=== PATIENT | male | born 1955 | race Two or more races ===

== ENCOUNTER 2022-02-10 13:13 | Outpatient (REF) | payer MEDICARE, MEDICAID, SELFPAY ==
--- NOTE | 2022-02-10 14:47 | MHC.AU.MED ---
Medical Clearance for Hearing Instrumentation Date: 02/10/22 Patient Name: Brain Dumont Date of : 1955 Referring Provider: Ania Singh MD We have seen your patient on 02/10/22 and have determined that they are a candidate for amplification (See accompanying report). Specifically, they would benefit from: Hearing aid use in both ears There is a statute that addresses Medical Evaluation Requirements prior to fitting a patient with a hearing aid. According to [place] statute 265 CMR:6.03(1), (a) General. Except as provided in 265 CMR 6.03(1)(b), a systems support officer shall not sell a hearing aid unless the prospective user has presented to the systems support officer a written statement signed by a licensed physician that states that the patient's hearing loss has been medically evaluated and the patient may be considered a candidate for a hearing aid. The medical evaluation must have taken place within the preceding six months. Please note: Due to the [place] Statute referenced above, we cannot accept a signature other than that of a licensed physician. ELECTRONICS DETAIL DRAFTSPERSON and PA signatures cannot be accepted. I am in agreement with the above recommendation. There is no medical contraindication for hearing instrumentation. Physician Signature Date Physician Name (Printed)
--- NOTE | 2022-02-10 14:49 | MHC.AU.HA1 ---
Hearing Aid Evaluation Date of Visit: 02/10/22 Special Education Coordinator Used: Turkmen- In Person Historical Information: Description of Hearing: Normal at 250 Hz, sloping to moderately-severe sensorineural hearing loss, and rising back to normal by 8000 Hz bilaterally- cookie bite configuration Summary: Patient was seen for audiological evaluation (see separate report for details). He has not previously worn hearing aids. Options were discussed. He is interested in trying the ITC style. Hearing Aid Prescription: Based on the individual?s shared listening needs, communication environments, dexterity, desire for connectivity, and personal preferences, the following prescription for amplification has been made: Right ear: Make, Model, Color: ReSound Custom ITC, Medium Brown Battery Size: Rechargeable Left ear: Make, Model, Color: ReSound Custom ITC, Medium Brown Battery Size: Rechargeable Action Taken/Action Needed: Earmold Impressions Taken Prior authorization to be requested Hearing Instrument Fitting to be scheduled when materials arrive Primary Diagnosis: H90.3 Bilateral Sensorineural Hearing Loss Signature: Provider: Cj Carr, DAVID-A
== END 2022-02-10 13:14 | disposition home or self-care (01) ==
LOC: HO.HAP 13:13
PROVIDERS: Visit Provider Otolaryngology
DX: Z46.1 Encounter for fitting and adjustment of hearing aid (principal); H90.3 Sensorineural hearing loss, bilateral
CPT/HCPCS: 92557; 92567; 92591; V5275

== ENCOUNTER 2022-12-16 13:00 | Outpatient (REF) | payer MEDICARE, MEDICAID, SELFPAY ==
--- NOTE | 2022-12-16 13:40 | MHC.AU.HA1 ---
Hearing Aid Evaluation Date of Visit: 12/16/22 Historical Information: Description of Hearing: Right Ear: Within normal sloping to moderate rising to mild sensorineural hearing loss; Left Ear: Within normal sloping to severe rising to mild sensorineural hearing loss Summary: Brain provided an updated hearing test and medical clearance from Dr. Jones. He is ready to pursue amplification to help ease some of his communication difficulties. Brain reported he often has difficulty understanding people and needs them to raise the volume of their voices. 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 He has particular difficulty hearing in these particular environments due to the background noise. Brain also mentioned bilateral tinnitus which he is hoping hearing aids will help minimize his perception of the ringing. Discussed styles of hearing aids. Although previous HAE note reports Brain is interested in ITC devices, he opted to trial a rechargeable RITE that is compatible with his Android cell phone in order to keep ear canal more open. Hearing Aid Prescription: Based on the individual?s shared listening needs, communication environments, dexterity, desire for connectivity, and personal preferences, the following prescription for amplification has been made: Right ear: Make, Model, Color: Phonak Audeo L70-R Color: Graphite Sierra Battery Size: Rechargeable Civil Engineer In Training/Slim Tube: 2M Type of Earmold/Dome/CShell/SlimTip: Medium vented dome Left ear: Left ear prescription to be same as Right Hearing Aid above: Make, Model, Color: Phonak Audeo L70-R Color: Graphite Sierra Battery Size: Rechargeable Civil Engineer In Training/Slim Tube: 2M Type of Earmold/Dome/CShell/SlimTip: Medium vented dome Accessories/Assistive Technology: Key Account Coordinator Plan of Care: Patient wishes to purchase hearing aids as prescribed Action Taken/Action Needed: Hearing Instrument Fitting to be scheduled when materials arrive Primary Diagnosis: H90.3 Bilateral Sensorineural Hearing Loss Signature: Provider: Cj Mooney, [facility]
== END 2022-12-16 13:01 | disposition home or self-care (01) ==
LOC: HO.HAP 13:00
PROVIDERS: Visit Provider Otolaryngology
DX: Z46.1 Encounter for fitting and adjustment of hearing aid (principal); H90.3 Sensorineural hearing loss, bilateral
CPT/HCPCS: 92591

== ENCOUNTER 2023-01-12 15:12 | Outpatient (REF) | payer MEDICARE, MEDICAID, SELFPAY ==
--- NOTE | 2023-01-13 08:07 | MHC.AU.HA2 ---
Hearing Instrument Fitting- Adult- Binaural Date of Visit: 01/12/23 Hearing Instruments Dispensed: Right Ear: Make, Model, Color, Serial Number: Parth Chirinoso L70-R Color: Graphite Sierra S#[id number] Water Filterer Repair Warranty: 03/15/2026 Water Filterer Loss and Damage Warranty: 03/15/2026 [facility] Service Plan: Battery Size: Rechargeable Community Pharmacist/Slim Tube: 2M Earmold/Dome/CShell/SlimTip: Medium vented dome Type of Wax Guard: cerushield Left Ear: Make, Model, Color, Serial Number: Parth Kwaneo L70-R Color: Graphite Sierra S#[id number] Water Filterer Repair Warranty: 03/15/2026 Water Filterer Loss and Damage Warranty: 03/15/2026 [facility] Service Plan: Battery Size: Rechargeable Community Pharmacist/Slim Tube: 2M Earmold/Dome/CShell/SlimTip: Medium vented dome Type of Wax Guard: cerushield Accessories/Assistive Technology: Phonak Technical Support Technician Ease S#[id number] Summary of Fitting: Brain visited for hearing aid dispensing. Reviewed insertion/removal, excellence manager use. Due to time constraints we were not able to review cleaning/maintenance, will do so at follow up appointment. Verified to NAL-NL2 real ear targets. VC is active. Will pair with phone at follow up. He is looking forward to [facility] them to [facility] this coming [facility]. Follow up in 2 wks before he travels to [place]. Recommendations: Recommendations: A hearing instrument follow-up was scheduled. Diagnosis Code(s): Primary Diagnosis: H90.3 Bilateral Sensorineural Hearing Loss Signature: Provider: Beckie Ballard, CCC-A
== END 2023-01-12 15:13 | disposition home or self-care (01) ==
LOC: HO.HAP 15:12
PROVIDERS: Visit Provider Family Medicine
DX: Z46.1 Encounter for fitting and adjustment of hearing aid (principal); H90.3 Sensorineural hearing loss, bilateral
CPT/HCPCS: V5011; V5020; V5160; V5261

== ENCOUNTER 2023-02-28 13:56 | Outpatient (REF) | payer MEDICARE, MEDICAID, SELFPAY ==
--- NOTE | 2023-02-28 15:26 | MHC.AU.HA3 ---
Hearing Instrument Follow-Up- Binaural Date of Visit: 02/28/23 Right Ear: Model Isaías, Color, Serial Number: Parth Reyes L70-R SN: [id number] Color: Graphite Sierra Automatic Quilling Machine Operator Repair Warranty: 03/15/2026 Automatic Quilling Machine Operator Loss and Damage Warranty: 03/15/2026 [facility] Service Plan: 01/13/2024 Battery Size: Rechargeable Commercial Baker Helper/Slim Tube: 2M Earmold/Dome/CShell/SlimTip:Medium vented dome with retention tail Type of Wax Guard: CeruShield Dispensed By: [facility] Date of Fittin01/12/2023 Left Ear: Model Isaías, Color, Serial Number: Parth Reyes L70-R SN: [id number] Color: Graphite Sierra Automatic Quilling Machine Operator Repair Warranty: 03/15/2026 Automatic Quilling Machine Operator Loss and Damage Warranty: 03/15/2026 [facility] Service Plan: 01/13/2024 Battery Size: Rechargeable Commercial Baker Helper/Slim Tube: 2M Earmold/Dome/CShell/SlimTip: Medium vented dome with retention tail Type of Wax Guard: CeruShield Dispensed By: [facility] Date of Fittin01/12/2023 Follow-Up Summary: Brain reported overall he is doing well with the hearing aids. He forgot them when he went on a 13-day trip to [place]; however, he otherwise has reportedly worn them multimedia educational specialist. Updated firmware and therefore unable to confirm wear time via data logging. Brain did not want any programming adjustments at this time. He reportedly hears well including at [facility]. Explained how to clean hearing aids including how to change domes and wax guards. Paired hearing aids to cellphone and myPhonak cain and instructed on cain. Discussed the need for periodic cleanings. Recommendations: Hearing instrument follow-up or maintenance as needed. Please contact our clinic with any questions or concerns. Diagnosis Code(s): Primary Diagnosis: H90.3 Bilateral Sensorineural Hearing Loss Signature: Provider: Cj Mooney, [facility]
== END 2023-02-28 13:57 | disposition home or self-care (01) ==
LOC: HO.HAP 13:56
PROVIDERS: Visit Provider Family Medicine
DX: Z13.89 Encounter for screening for other disorder (principal)

== ENCOUNTER 2023-04-06 09:01 | Outpatient (REF) | payer OTHER, SELFPAY ==
[2023-04-06 15:01] LABS: Prostate Specific Antigen 13.92 ng/mL (<0.05-4.0)
== END 2023-04-06 09:02 | disposition home or self-care (01) ==
LOC: HO.CHCLDS 09:01
PROVIDERS: Visit Provider Internal Medicine
DX: R97.20 Elevated prostate specific antigen [PSA] (principal); Z12.5 Encounter for screening for malignant neoplasm of prostate
CPT/HCPCS: 36415; 84153

== ENCOUNTER 2023-04-24 14:12 | Outpatient (AMB) | payer OTHER, SELFPAY ==
--- NOTE | 2023-04-24 14:22 | MHC.OFFVIS ---
Intake Intake Visit Reasons: Elevated PSA Intake Note: New Patient presents for initial visit for elevated psa Urology Medications: none Blood Thinner: aspirin Weeder Required: Yes Accompanied by: Self / Same As Patient Allergies No Known Allergies Allergy (Verified 04/24/23 14:58) HPI HPI Comments History of Present Illness Details Brain is a 68-year-old Swedish-speaking male patient of Dr. Ora Jarrett. He has a past medical history of hypertension and postural dizziness. He presents to the office today as a new patient for an elevated PSA. In discussion with the patient today reports having had a follow-up with PCP at which time his PSA was noted to be elevated 03/01 13.9. When asked he denies any known family history of prostate cancer. DUNCAN performed right side of the prostate was noted to be firm left side boggy. No masses or nodules palpated. Discussed at length potential causes of elevated PSA. Discussed obtaining redraw of PSA and retroperitoneal ultrasound for further assessment evaluation. When asked he does report noting ongoing intermittent issues with dysuria. He reports these symptoms have been present for quite some time however dysuria is not with every urination. He otherwise denies urinary nocturia, hematuria, dysuria, foul smelling urine, changes to urinary stream, flank pain, fever, and or chills. He does report utilizing an adult diaper due to episodes of urinary urgency with incontinence if not near a bathroom. He otherwise denies any other issues or concerns at this time. [facility] Medical History Elevated PSA Postural dizziness Hypertensive disorder Review of Systems Const Reports no additional complaints Eyes Reports no additional complaints ENT Reports no additional complaints Card Reports as per HPI Resp Reports no additional complaints GI Reports no additional complaints Reports as per HPI Musc Reports no additional complaints Neuro Reports as per HPI Psych Reports no additional complaints Endo Reports no additional complaints Julio/Lymph Reports no additional complaints Aller/Immun Reports no additional complaints Physical Exam Const General: cooperative, healthy appearing, comfortable, no acute distress, well developed, alert and awake Orientation/consciousness: patient oriented x3 Limitations: no limitations HEENT Head: Yes normal to inspection, Yes normocephalic and Yes atraumatic Ears: hearing grossly normal bilaterally Eyes General: appearance normal, both eyes and all related structures Neck Neck: Yes normal visual inspection and Yes trachea midline Chest Chest palpation & inspection: normal inspection of the chest Resp Effort & Inspection: normal respiratory effort and able to speak in complete sentences Cardio Rate: regular rate GI Inspection: Yes normal to inspection General: Yes no CVA tenderness Back/Spine/Pelvis Back: no CVA tenderness Skin General skin exam: no rashes or lesions noted Neuro General: patient oriented x3 Extrem General: Yes normal to inspection Psych Appearance: grossly normal and well kempt Mental Status: mental status grossly normal Speech and movement: Normal speech and movement present and Clear speech present Affect: normal affect Attitude: cooperative Thought process: Normal thought process present Thought content: Normal thought content present Insight: Fair insight present (Psych) Judgement: Fair judgement present (Psych) Results AMB Urinalysis, Automated UA Leukoctes 15 Melyssa/uL Last Edit by [employer] on 04/24/23 14:59 UA Nitrite Negative Last Edit by [employer] on 04/24/23 14:59 UA Urobilinogen 0.2 mg/dL Last Edit by [employer] on 04/24/23 14:59 UA Protein 15 mg/dL Last Edit by [employer] on 04/24/23 14:59 UA pH 6.0 Last Edit by [employer] on 04/24/23 14:59 UA Blood 80 Almas/uL Last Edit by [employer] on 04/24/23 14:59 UA Specific Kent 1.015 Last Edit by [employer] on 04/24/23 14:59 UA Ketone Negative Last Edit by [employer] on 04/24/23 14:59 UA Bilirubin 0 mg/dL Last Edit by [employer] on 04/24/23 14:59 UA Glucose 0 mg/dL Last Edit by [employer] on 04/24/23 14:59 Results Reviewed Results Reviewed: Laboratory Last Values Urine pH (Auto) 6.0 04/24/23 14:27 Specific Kent (Auto) 1.015 04/24/23 14:27 Urine Protein (Auto) 15 mg/dL 04/24/23 14:27 Glucose (UA)(Auto) 0 mg/dL 04/24/23 14:27 Urine Ketones (Auto) Negative 04/24/23 14:27 Urine Blood (Auto) 80 Almas/uL 04/24/23 14:27 Urine Nitrite (Auto) Negative 04/24/23 14:27 Urine Bilirubin (Auto) 0 mg/dL 04/24/23 14:27 Urine Urobilinogen (Auto) 0.2 mg/dL 04/24/23 14:27 Leukocyte Esterase (Auto) 15 Melyssa/uL 04/24/23 14:27 Assessment & Plan Assessment & Plan (1) Prostatitis: Code(s): N41.9 - Inflammatory disease of prostate, unspecified (2) Dysuria: Code(s): R30.0 - Dysuria (3) Abnormal digital rectal exam: Code(s): R68.89 - Other general symptoms and signs (4) Urinary incontinence, urge: Code(s): N39.41 - Urge incontinence (5) Elevated PSA: Code(s): R97.20 - Elevated prostate specific antigen [PSA] Plan In office urinalysis results reviewed with the patient today; as noted above. Discussed at length potential causes of elevated PSA. Start Bactrim as discussed and prescribed. Discussed redraw of PSA status post antibiotic therapy as prescribed. Will obtain retroperitoneal ultrasound for further assessment evaluation. Discussed possible near future prostate biopsy. Discussed at length importance of timed voiding to decreased episodes of stress incontinence Follow-up in 2-3 months with labs and imaging to be completed prior; or sooner with any issues, concerns, and or questions. Orders: Orders US retroperitoneal comp Today N39.41 - Urge incontinence, N41.9 - Inflammatory disease of prostate, unspecified AMB Urinalysis Automated Today Z13.9 - Encounter for screening, unspecified PSA,Total (Free>4and<10) 6 Weeks R68.89 - Other general symptoms and signs, R97.20 - Elevated prostate specific antigen [PSA] Urine Culture Today R30.0 - Dysuria Medications: New sulfamethoxazole-trimethoprim 800-160 mg (Bactrim DS) 1 tab PO BID 14 days 28 tabs 0RF N41.9 - Inflammatory disease of prostate, unspecified Patient Instructions: The patient had an opportunity to ask questions regarding the treatment plan. All questions were answered. Physical exam, labs, and imaging were discussed and reviewed in detail. As well as risks, benefits, and discussion of treatment choices. No major barriers to understanding were identified. The patient expressed understanding and agreement with the above treatment plan. The patient was made aware they should contact our office by phone for worsening of their current condition, the appearance of new symptoms, or with any questions or concerns. Compliance is encouraged with any medications and follow up testing that is ordered. It is a privilege to be allowed the opportunity to participate in? your urological care.? Again, if you have any questions or concerns If you have any questions or concerns please do not hesitate to contact me. The office is [phone]. This note is constructed using voice recognition software. While every effort has been made to ensure accuracy contract driver errors may have been included. Yours sincerely, TAHIRA Riley Coding Level of Care Code New Pt Level 4 (62109) Diagnoses Prostatitis N41.9 Dysuria R30.0 Abnormal digital rectal exam R68.89 Urinary incontinence, urge N39.41 Elevated PSA R97.20
== END 2023-04-24 15:07 | disposition home or self-care (01) ==
PROVIDERS: PCP Internal Medicine; Visit Provider Nurse Practitioner Family
DX: N41.9 Inflammatory disease of prostate, unspecified (principal); R30.0 Dysuria; R68.89 Other general symptoms and signs; N39.41 Urge incontinence; R97.20 Elevated prostate specific antigen [PSA]; Z13.9 Encounter for screening, unspecified
CPT/HCPCS: 99204

== ENCOUNTER 2023-04-24 14:12 | Outpatient (REF) | payer OTHER, SELFPAY | END 2023-04-24 14:13 | disposition home or self-care (01) | LOC: HO.LNP 14:12 | PROVIDERS: PCP Internal Medicine; Visit Provider Nurse Practitioner Family | DX: R30.0 Dysuria (principal); R97.20 Elevated prostate specific antigen [PSA]; N41.9 Inflammatory disease of prostate, unspecified; R68.89 Other general symptoms and signs; N39.41 Urge incontinence | CPT/HCPCS: 81003; 87086; 99202 ==

== ENCOUNTER 2023-06-23 13:40 | Outpatient (REF) | payer OTHER, SELFPAY ==
--- NOTE | ~2023-06-23 | US_ITS ---
EXAMINATION: US RETROPERITONEAL COMPLETE (RENAL) CLINICAL INFORMATION: Urge incontinence. COMPARISON: None available. TECHNIQUE: Real-time imaging of the kidneys and bladder. Technically limited study secondary to body habitus. FINDINGS: RIGHT KIDNEY: 11.9 x 5.4 x 4.6 cm (SAG x AP x TRV). The kidney is normal in size, contour, and echogenicity. Renal cortical thickness is normal. No renal calculi or hydronephrosis. 1.5 cm simple parapelvic cyst in the lower pole. No follow-up imaging is recommended. LEFT KIDNEY: 11.3 x 6.0 x 5.3 cm (SAG x AP x TRV). The kidney is normal in size, contour, and echogenicity. Renal cortical thickness is normal. No calculi or focal parenchymal lesions. No hydronephrosis. BLADDER: Trabeculated urinary bladder with multiple small diverticuli. The bladder base is deformed by the enlarged prostate. Prevoid volume 440 mL. Post void volume 250 mL. ADDITIONAL FINDINGS: Enlarged prostate with a prominent median lobe; 164 mL. US/US retroperitoneal comp IMPRESSION: Enlarged prostate. Thick-walled bladder with numerous diverticuli consistent with sequela of chronic bladder outlet obstruction. No hydronephrosis. Post void bladder residual of 250 mL.
== END 2023-06-23 13:41 | disposition home or self-care (01) ==
LOC: HO.US 13:40
PROVIDERS: PCP Internal Medicine; Visit Provider Nurse Practitioner Family
DX: N39.41 Urge incontinence (principal); N41.9 Inflammatory disease of prostate, unspecified
CPT/HCPCS: 76770

== ENCOUNTER 2023-08-17 08:51 | Outpatient (REF) | payer OTHER, SELFPAY ==
[2023-08-17 14:46] LABS: MANUAL DIFF FLAG NO
[2023-08-17 14:55] LABS: Basophils Percent Auto 0.3 % (0-2); Eosinophils Absolute Auto 0.2 X10*3/uL (0.0-0.4); Eosinophils Percent Auto 3.3 % (0-4); Hematocrit 39.8 % (42.0-52.0); Hemoglobin 12.9 g/dl (14.0-18.0); Imm Gran Abs Auto 0.02 X10*3/uL (0.00-0.03); Imm Gran Pct Auto 0.3 % (0.0-0.4); Lymphocytes Absolute Auto 2.4 X10*3/uL (1.2-4.9); Lymphocytes Percent Auto 34.9 % (20-40); Mean Corpuscular HGB Conc 32.4 g/dl (31.0-36.0); Mean Corpuscular Hemoglobin 29.5 pg (27.0-33.0); Mean Corpuscular Volume 90.9 fL (80.0-98.0); Mean Platelet Volume 11.2 fL (9.4-12.4); Monocytes Absolute Auto 0.4 X10*3/uL (0.1-1.2); Monocytes Percent Auto 6.5 % (2-11); Neutrophils Absolute Auto 3.7 x10*3/uL (2.0-8.3); Neutrophils Percent Auto 54.7 % (45-73); Platelet Count 242 X10*3/uL (160-400); Red Blood Count 4.38 X10*6/uL (4.60-5.80); Red Cell Distribution Width 12.7 % (11.0-16.0); White Blood Count 6.7 X10*3/uL (4.8-10.8)
[2023-08-17 15:10] LABS: Alanine Aminotransferase 15 U/L (0-40); Alkaline Phosphatase 97 U/L (39-117); Anion Gap 11 (12-20); Aspartate Amino Transferase 17 U/L (5-37); Bilirubin Total 0.7 mg/dL (0.0-1.0); Blood Urea Nitrogen 10 mg/dL (9-16); Calcium 8.8 mg/dL (8.4-10.2); Carbon Dioxide 27 mmol/L (22-29); Chloride 108 mmol/L (96-108); Cholesterol 160 mg/dL (<200); Estimated Glomerular Filt Rate > 60; Glucose Random 98 mg/dL (60-115); HDL Cholesterol 50 mg/dL (>40); LDL Cholesterol Calculated 92 mg/dL (<100); Potassium 3.5 mmol/L (3.3-5.1); Sodium 142 mmol/L (135-145); Total Protein 7.3 g/dL (6.5-8.0); Triglycerides 90 mg/dL (<150)
== END 2023-08-17 08:52 | disposition home or self-care (01) ==
LOC: HO.CHCLDS 08:51
PROVIDERS: Visit Provider Internal Medicine
DX: E78.2 Mixed hyperlipidemia (principal)
CPT/HCPCS: 36415; 80053; 80061; 85025

== ENCOUNTER 2023-09-12 09:42 | Outpatient (REF) | payer OTHER, SELFPAY | END 2023-09-12 09:43 | disposition home or self-care (01) | LOC: HO.CHCLDS 09:42 | PROVIDERS: Visit Provider Nurse Practitioner Family | DX: R68.89 Other general symptoms and signs (principal); R97.20 Elevated prostate specific antigen [PSA]; Z12.5 Encounter for screening for malignant neoplasm of prostate | CPT/HCPCS: 36415; 84153 ==

== ENCOUNTER 2023-11-07 11:10 | Outpatient (AMB) | payer OTHER, SELFPAY ==
--- NOTE | 2023-11-07 11:37 | A.OFFVIS_ITS ---
Intake Visit Reasons: lab results(set) Intake Note: Patient presents today for follow up visit on: elevated psa PSA: 14.50 Urology Medications: none Blood Thinner: aspirin Boom Stick Worker Required: Yes Boom Stick Worker Services: Boom Stick Worker Present Boom Stick Worker Name: GLORIA LOMBARDIIker MEAD Accompanied by: Self / Same As Patient Allergies No Known Allergies Allergy (Verified 11/07/23 12:08) Medication List - Last Reconciled 11/07/23 by POPEYE Riley- amlodipine 10 mg PO DAILY aspirin 81 mg PO DAILY atorvastatin 20 mg PO BEDTIME lisinopril 20 mg PO DAILY meclizine mg PO DAILY metoprolol tartrate 25 mg PO BID HPI Comments Details: Brain is a 68-year-old Khmer-speaking male patient of Dr. Ora Jarrett. He has a past medical history of hypertension and postural dizziness. He presents to the office today for follow-up. Of note, patient was seen approximately 7 months ago for an elevated PSA at which time in office DUNCAN was performed and patient was noted to have left side of his prostate boggy and recommendations were made for initiation of Bactrim for potential prostatitis. Recommendations were made for 2-3 month follow-up however patient reports he was unable to follow-up and rescheduled appointment to today. When asked he does report completing antibiotic therapy as prescribed. Recent PSA and retroperitoneal ultrasound results reviewed with the patient today. We discussed increase in PSA despite completion of antibiotic therapy. We discussed at length potential causes of elevated PSA as well as further treatment options and risks and benefits of these treatment options were discussed. PSA: 03/01 13.9, 09/29 14.5 Retroperitoneal ultrasound results reviewed with the patient today. Bilateral kidneys are normal in size, contour, and echogenicity. No hydronephrosis or renal calculi noted. Right 1.5 cm simple peripelvic cyst in the lower pole. No imaging follow-up per radiology report. The bladder is trabeculated with multiple small diverticula. The bladder base is deformed by the enlarged prostate. Pre void bladder volume is a proximally 440 mL. Postvoid bladder volume is approximately 250 mL. Enlarged prostate with a prominent median lobe measuring approximately 165 mL. Patient does report a previous history of a negative biopsy approximately 8-10 years ago. He currently denies any bothersome urinary issues or concerns. He denies denies urinary nocturia, hematuria, dysuria, foul smelling urine, changes to urinary stream, flank pain, fever, and or chills. We discussed at length potential causes of elevated PSA as well as further treatment options. Risks and benefits of these interventions were discussed. All questions were answered. He otherwise denies any other issues or concerns at this time. [facility] Medical History Elevated PSA Postural dizziness Hypertensive disorder Review of Systems Const Reports no additional complaints Eyes Reports no additional complaints ENT Reports no additional complaints Card Reports as per HPI Resp Reports no additional complaints GI Reports no additional complaints Reports as per HPI Musc Reports no additional complaints Neuro Reports as per HPI Psych Reports no additional complaints Endo Reports no additional complaints Julio/Lymph Reports no additional complaints Aller/Immun Reports no additional complaints Physical Exam Const General: cooperative, healthy appearing, comfortable, no acute distress, well developed, alert and awake Orientation/consciousness: patient oriented x3 Limitations: no limitations HEENT Head: Yes normal to inspection, Yes normocephalic and Yes atraumatic Ears: hearing grossly normal bilaterally Eyes General: appearance normal, both eyes and all related structures Neck Neck: Yes normal visual inspection and Yes trachea midline Chest Chest palpation & inspection: normal inspection of the chest Resp Effort & Inspection: normal respiratory effort and able to speak in complete sentences Cardio Rate: regular rate GI Inspection: Yes normal to inspection General: Yes no CVA tenderness Back/Spine/Pelvis Back: no CVA tenderness Skin General skin exam: no rashes or lesions noted Neuro General: patient oriented x3 Extrem General: Yes normal to inspection Psych Appearance: grossly normal and well kempt Mental Status: mental status grossly normal Speech and movement: Normal speech and movement present and Clear speech present Affect: normal affect Attitude: cooperative Thought process: Normal thought process present Thought content: Normal thought content present Insight: Fair insight present (Psych) Judgement: Fair judgement present (Psych) Results AMB Urinalysis, Automated UA Leukoctes 125 Melyssa/uL Last Edit by Lona Guardado on 11/07/23 11:50 UA Nitrite Last Edit by 4th aspectrhona Guardado on 11/07/23 11:50 UA Urobilinogen 0.2 mg/dL Last Edit by [email or web address] on 11/07/23 11:50 UA Protein 0 mg/dL Last Edit by Lona Guardado on 11/07/23 11:50 UA pH 6.0 Last Edit by Lona Guardado on 11/07/23 11:50 UA Blood 0 Almas/uL Last Edit by [email or web address] on 11/07/23 11:50 UA Specific Vilas 1.020 Last Edit by [email or web address] on 11/07/23 11:50 UA Ketone Negative Last Edit by [email or web address] on 11/07/23 11:50 UA Bilirubin 0 mg/dL Last Edit by [email or web address] on 11/07/23 11:50 UA Glucose 0 mg/dL Last Edit by [email or web address] on 11/07/23 11:50 Results Reviewed Results Reviewed: Laboratory Last Values Urine pH (Auto) 6.0 11/07/23 11:48 Specific Vilas (Auto) 1.020 11/07/23 11:48 Urine Protein (Auto) 0 mg/dL 11/07/23 11:48 Glucose (UA)(Auto) 0 mg/dL 11/07/23 11:48 Urine Ketones (Auto) Negative 11/07/23 11:48 Urine Blood (Auto) 0 Almas/uL 11/07/23 11:48 Urine Bilirubin (Auto) 0 mg/dL 11/07/23 11:48 Urine Urobilinogen (Auto) 0.2 mg/dL 11/07/23 11:48 Leukocyte Esterase (Auto) 125 Melyssa/uL 11/07/23 11:48 Date of Service: 06/23/23 EXAMINATION: US RETROPERITONEAL COMPLETE (RENAL) FINDINGS: RIGHT KIDNEY: 11.9 x 5.4 x 4.6 cm (SAG x AP x TRV). The kidney is normal in size, contour, and echogenicity. Renal cortical thickness is normal. No renal calculi or hydronephrosis. 1.5 cm simple parapelvic cyst in the lower pole. No follow-up imaging is recommended. LEFT KIDNEY: 11.3 x 6.0 x 5.3 cm (SAG x AP x TRV). The kidney is normal in size, contour, and echogenicity. Renal cortical thickness is normal. No calculi or focal parenchymal lesions. No hydronephrosis. BLADDER: Trabeculated urinary bladder with multiple small diverticuli. The bladder base is deformed by the enlarged prostate. Prevoid volume 440 mL. Post void volume 250 mL. ADDITIONAL FINDINGS: Enlarged prostate with a prominent median lobe; 164 mL. IMPRESSION: Enlarged prostate. Thick-walled bladder with numerous diverticuli consistent with sequela of chronic bladder outlet obstruction. No hydronephrosis. Post void bladder residual of 250 mL. Assessment & Plan Assessment & Plan (1) Elevated PSA: Code(s): R97.20 - Elevated prostate specific antigen [PSA] Category: Medical (2) Prostatitis: Code(s): N41.9 - Inflammatory disease of prostate, unspecified Category: Medical (3) Abnormal digital rectal exam: Code(s): R68.89 - Other general symptoms and signs Category: Medical Plan: Plan Risks and benefits regarding trans rectal ultrasound with prostate biopsy were discussed.? Options of continued surveillance, no treatment and biopsy were offered. The risks include but are not limited to, urinary tract infection, sepsis, difficulty urinating, bleeding into the rectum or bladder that requires intervention and transfusion,and failure to diagnose prostate cancer. The patient understands the options and the risks involved. They wish to proceed. Printed information was provided to ensure he remains off anticoagulation for the appropriate length of time. He may require cardiology or PCP clearance.? An antibiotic will be administered prior to, and following the procedure (4) Enlarged prostate: Code(s): N40.0 - Benign prostatic hyperplasia without lower urinary tract symptoms Category: Medical (5) Diverticula, bladder: Code(s): N32.3 - Diverticulum of bladder Category: Medical (6) Bladder wall thickening: Code(s): N32.89 - Other specified disorders of bladder Category: Medical Plan In office urinalysis results with the patient today; as noted above. We discussed at length potential causes of elevated PSA. We discussed importance of following up as recommended to avoid potential delay in treatment. We discussed further treatment options; and risks and benefits of these interventions were discussed. Recent PSA results reviewed with the patient today. Will schedule for prostate biopsy as discussed. Prescription provided for antibiotic therapy; we discussed importance of taking medication day before, day of, and day after prostate biopsy. Follow-up per doctor's orders; or sooner with any issues, concerns, and or questions. Orders: Orders AMB Urinalysis Automated Today Z13.9 - Encounter for screening, unspecified Patient Instructions: The patient had an opportunity to ask questions regarding the treatment plan. All questions were answered. Physical exam, labs, and imaging were discussed and reviewed in detail. As well as risks, benefits, and discussion of treatment choices. No major barriers to understanding were identified. The patient expressed understanding and agreement with the above treatment plan. The patient was made aware they should contact our office by phone for worsening of their current condition, the appearance of new symptoms, or with any questions or concerns. Compliance is encouraged with any medications and follow up testing that is ordered. It is a privilege to be allowed the opportunity to participate in? your urological care.? Again, if you have any questions or concerns If you have any questions or concerns please do not hesitate to contact me. The office is [phone]. This note is constructed using voice recognition software. While every effort has been made to ensure accuracy bias cutting machine operator errors may have been included. Yours sincerely, TAHIRA Riley Coding Level of Care Code Est Pt Level 4 (07703) Diagnoses Elevated PSA R97.20 Prostatitis N41.9 Abnormal digital rectal exam R68.89 Enlarged prostate N40.0 Diverticula, bladder N32.3 Bladder wall thickening N32.89
== END 2023-11-07 12:07 | disposition home or self-care (01) ==
PROVIDERS: PCP Internal Medicine; Visit Provider Nurse Practitioner Family
DX: R97.20 Elevated prostate specific antigen [PSA] (principal); N41.9 Inflammatory disease of prostate, unspecified; R68.89 Other general symptoms and signs; N40.0 Benign prostatic hyperplasia without lower urinary tract symptoms; N32.3 Diverticulum of bladder; N32.89 Other specified disorders of bladder; Z13.9 Encounter for screening, unspecified
CPT/HCPCS: 99214

== ENCOUNTER → 2023-11-07 11:10 | Outpatient (BNVA) | payer OTHER, SELFPAY | PROVIDERS: PCP Internal Medicine; Visit Provider Nurse Practitioner Family | DX: R97.20 Elevated prostate specific antigen [PSA] (principal); N41.9 Inflammatory disease of prostate, unspecified; R68.89 Other general symptoms and signs; N40.0 Benign prostatic hyperplasia without lower urinary tract symptoms; N32.3 Diverticulum of bladder; N32.89 Other specified disorders of bladder | CPT/HCPCS: 81003; 99212 ==

== ENCOUNTER 2023-11-16 07:56 | Outpatient (REF) | payer OTHER, SELFPAY ==
[2023-11-16] MEDS: Lidocaine HCl 1 % MPF 5 ML VIAL 10 ML SUBCUT (09:03)
[2023-11-16] MEDS: levoFLOXacin 250 MG TABLET PO (09:07)
--- NOTE | 2023-11-16 15:48 | W.PM.OPN ---
Operative Note Operative Note Date of Service: 11/16/23 Narrative: Preoperative diagnosis: Elevated PSA Postoperative diagnosis: Elevated PSA Procedure: 1. transrectal ultrasound measurement of prostate 2. transrectal ultrasound-guided pudendal nerve block 3. transrectal ultrasound-guided prostate biopsy 12 core Surgeon: Dr. Edgardo Muller Anesthetic: 10cc 1% lidocaine Indications for procedure: Elevated PSA 14.5 Counselling: Technical aspects, risks and benefits of proposed procedure were discussed in full. All questions have been answered, written consent has been obtained and patient agrees to proceed. Procedure: The patient was brought into the procedure area and placed in a left lateral decubitus position. Patient identity confirmed. Perioperative antibiotics confirmed. Safety pause time out performed. DUNCAN was performed to dilate rectal - extremely large prostate sphincter Iodine 10cc with 60 cc gel was placed per rectum to reduce infection risk using a catheter tip syringe. 8 Hz Jack rectal end-fire ultrasound probe was placed transrectally without difficulty. The prostate was visualized. Seminal vesicles were normal. Prostate margins were clearly demarcated. Bladder was seen superiorly. No cystic structures were noted No calcifications were noted at the surgical margin The prostate was otherwise heterogenous in nature The prostate was measured in 3 dimensions Prostatic Width: 7 cm Prostatic Height: 8 cm Urethral Length: 7 cm Total volume equals : 230 ml An ultrasound-guided pudendal nerve block was performed using a 22 gauge spinal needle in the sagittal plane. 4 cc of 1% lidocaine placed at the junction of each seminal vesicle and 2 cc placed at the apex of the prostate. A 12 core biopsy was performed with 6 cores each side using an 18 gauge prostate biopsy gun. Two cores each were taken at the prostate apex, mid and base on each side. Cores were spaced between lateral and medial aspects. Each core was examined as placed on specimen foam as part of director quality assurance to ensure a minimum 1 cm of length and minimal discontinuity. He tolerated the procedure well with minimal rectal bleeding. Blood pressure remained stable following procedure. He was able to ambulate to bathroom after 5 minutes. Printed instructions regarding antibiotic use and common adverse events from the procedure such as low-grade temperature, potential infection and bleeding were given. He understands to call the office or go to an emergency room should any of these events arise. Pathology: 12 core prostate biopsy. CPT code 97817: Transrectal ultrasound; this is a diagnostic test for evaluation of the prostate and surrounding structures, looking for abnormalities or suspicious areas worrisome for cancer CPT code 51060: Biopsy, prostate; needle or punch, single or multiple, any approach CPT code 57035: Ultrasonic guidance for needle placement (eg, biopsy, aspiration, injection, localization device), imaging supervision and interpretation
== END 2023-11-16 07:57 | disposition home or self-care (01) ==
LOC: HO.US 07:56
PROVIDERS: PCP Internal Medicine; Visit Provider Urology
DX: R97.20 Elevated prostate specific antigen [PSA] (principal)
CPT/HCPCS: 55700; 76942; 88305; J2003

== ENCOUNTER → 2023-11-16 07:56 | Outpatient (BNV) | payer OTHER, SELFPAY | PROVIDERS: PCP Internal Medicine; Visit Provider Urology | DX: R97.20 Elevated prostate specific antigen [PSA] (principal) | CPT/HCPCS: 55700; 76872; 76942 ==

== ENCOUNTER 2023-12-07 12:47 | Outpatient (AMB) | payer OTHER, SELFPAY ==
--- NOTE | 2023-12-07 13:06 | A.OFFVIS_ITS ---
Intake Visit Reasons: Prostate biopsy results Intake Note: Patient is present for Telephone Biopsy results Urology Med: None Antibiotic Allergy: None Blood Thinner: Aspirin Vp Business Development Required: Yes Vp Business Development Language: Qatari Information Interpreted: clinical only Accompanied by: Self / Same As Patient Allergies No Known Allergies Allergy (Verified 12/07/23 13:07) HPI Comments Details: Lina is a pleasant Qatari-speaking male. He is a patient of Dr. Payan. He seen for the following urologic conditions - prostatitis Telemedicine Evaluation 15 min Consultation [employer] [place] [employer] Tolerated biopsy Biopsy results - chronic inflammation consistent with prior prostatitis Add finasteride given size of prostate Follow-up 6 months with PSA Would encourage prostate procedure if experiencing symptoms Elevated PSA with prostatitis PSA 09/29 14.5 Prior prostate imaging 165 g At time of biopsy 230 g High postvoid bladder volume PFSH Medical History Elevated PSA Postural dizziness Hypertensive disorder Review of Systems Const All systems reviewed & are unremarkable except as noted in HPI and below Reports no additional complaints Resp Reports no additional complaints GI Reports no additional complaints Reports as per HPI Musc Reports no additional complaints Physical Exam Telemedicine evaluation Appropriate responses Regular breathing rate and rhythm HEENT Head: Yes normal to inspection Ears: hearing grossly normal bilaterally Eyes General: appearance normal, both eyes and all related structures Neck Neck: Yes normal visual inspection Chest Chest palpation & inspection: normal inspection of the chest Resp Effort & Inspection: normal respiratory effort and able to speak in complete sentences Telehealth Telehealth Location of provider rendering services: practice address Location of patient: address on file Patient Identification confirmed using: Name, : Yes Telehealth method: voice only Patient verbally consented to treatment: Yes Patient verbally consented to billing insurance company: Yes Patient informed of any privacy concerns related to visit: Yes Assessment & Plan Assessment & Plan (1) Prostatitis: Code(s): N41.9 - Inflammatory disease of prostate, unspecified Category: Medical (2) Elevated PSA: Code(s): R97.20 - Elevated prostate specific antigen [PSA] Category: Medical (3) Enlarged prostate: Code(s): N40.0 - Benign prostatic hyperplasia without lower urinary tract symptoms Category: Medical Plan Finasteride Six-month follow-up PSA nurse-practitioner Orders: Orders PSA,Total (Free>4and<10) 6 Months R97.20 - Elevated prostate specific antigen [PSA] Medications: New finasteride 5 mg PO DAILY 90 days 90 tabs 1RF N13.8 - Other obstructive and reflux uropathy, N40.1 - Benign prostatic hyperplasia with lower urinary tract symptoms, R33.9 - Retention of urine, unspecified, R97.20 - Elevated prostate specific antigen [PSA] Patient Instructions: Imaging studies, laboratory and physical exam results were discussed and reviewed in detail. No major barriers to patient understanding were identified. An opportunity to ask questions regarding the treatment plan was provided. All questions were answered. The patient expressed understanding and agreement with the above treatment plan. The patient is aware they should contact our office by phone for worsening of their current condition or the appearance of new urologic symptoms. Compliance is encouraged with any medications and followup testing that is ordered. It is a privilege to participate in the urologic care of your patient. If you have any questions or concerns regarding treatment for the above conditions, or other urologic issues, please do not hesitate to contact me. The office telephone contact is [phone]. This note is constructed using voice recognition software. While every effort has been made to ensure accuracy manager grocery errors may have been included. Yours sincerely, Dr Edgardo Muller MD, [facility] - Urology Providers of Expert, Compassionate Care for the Genitourinary System Coding Level of Care Code Tele Est Pt Level 4 (62848) Diagnoses Prostatitis N41.9 Elevated PSA R97.20 Enlarged prostate N40.0
== END 2023-12-07 13:26 | disposition home or self-care (01) ==
LOC: HO.HUSH 12:47
PROVIDERS: PCP Internal Medicine; Visit Provider Urology
DX: N41.9 Inflammatory disease of prostate, unspecified (principal); R97.20 Elevated prostate specific antigen [PSA]; N40.0 Benign prostatic hyperplasia without lower urinary tract symptoms
CPT/HCPCS: 99442

== ENCOUNTER → 2023-12-07 12:47 | Outpatient (BNVA) | payer OTHER, SELFPAY | PROVIDERS: PCP Internal Medicine; Visit Provider Urology ==

== ENCOUNTER 2024-01-23 12:59 | Outpatient (AMB) | payer OTHER, SELFPAY ==
--- NOTE | 2024-01-23 13:00 | A.OFFVIS_ITS ---
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 Patient states he has veins that are big and swollen. 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 We utilized Hanna as an internal audit director. Complaints include pain/discomfort over varicosities, slight swelling of lower extremities, itchiness, and warmth of the lower extremities. It has been affecting their daily activities including walking and standing. It is noted more so in right leg. He does not smoke and is not a diabetic. Patient denies any previous venous surgery or injections. Patient denies any history of DVT/ PE. Patient denies any history of phlebitis. Trial of compression includes - elevation with a little relief They now present for vascular evaluation regarding their varicose veins. [facility] Medical History Elevated PSA Postural dizziness Hypertensive disorder Review of Systems Const Reports as per HPI and Denies weakness ENT Reports Normal hearing present and Denies dizziness Card Reports as per HPI, Denies chest pain, Denies chest pain at rest, Denies chest pain with activity, Denies dyspnea and Denies dyspnea on exertion Resp Reports as per HPI, Denies cough, Denies dyspnea and Denies dyspnea on exertion GI Reports as per HPI, Denies abdominal pain, Denies nausea and Denies vomiting Musc Denies numbness Skin/Breast Reports as per HPI, Denies erythema and Denies wounds Neuro Reports Normal hearing present, Denies dizziness, Denies numbness, Denies Sensory deficit (Neuro) and Denies weakness Psych Reports no additional complaints Endo Reports no additional complaints Physical Exam Const General: healthy appearing and no acute distress Orientation/consciousness: patient oriented x3 HEENT Head: Yes normal to inspection Ears: hearing grossly normal bilaterally Mouth: Normal oral and palatal mucosa present Resp Effort & Inspection: normal respiratory effort and able to speak in complete sentences Auscultation: clear to auscultation bilaterally Cardio Jugular venous distension: no JVD Rate: regular rate Rhythm: regular rhythm Heart sounds: S1 normal heart sound present and S2 normal heart sound present Bruits: no abdominal aortic bruits, no carotid bruits, no femoral bruits and no renal bruits Peripheral pulses: Peripheral pulses 2+ throughout GI Inspection: Yes normal to inspection Palpation (GI): No Abdominal aortic bruit present Skin General skin exam: no rashes or lesions noted Wounds: no wounds Hair: normal Neuro General: patient oriented x3 Cranial nerves: Yes Normal hearing present Cognition (Neuro): normal cognition Gait exam (Neuro): Normal gait present Motor exam (neuro): 5/5 motor strength present throughout Sensory Exam: No Sensory deficit (Neuro) Extrem Other: Right lower extremity: Small tortuosities noted around the medial and anterior aspect just [id number]. Palpable DP pulses. Slight discoloration noted a round the ankles. Left lower extremity: Small spider veins noted on the medial and anterior aspect of the knee. Slight discoloration noted around the ankles. Palpable DP pulses. CEAP: C - 3/4 E - primary A - superficial P - reflux General: Yes normal to inspection, Yes full ROM, Yes capillary refill normal and Yes normal gait Assessment & Plan Assessment & Plan (1) Varicose veins of both lower extremities with inflammation: Code(s): I83.11 - Varicose veins of right lower extremity with inflammation; I83.12 - Varicose veins of left lower extremity with inflammation Category: Medical Plan: Brain is presenting today on a referral from his PCP for varicose veins that has been going on for over a year. He states his right leg is worse than his left. He has complaints of itchiness and feeling warmth as well as inflamed veins. He has been using some elevation with relief. In short, the patient has evidence of venous insufficiency. I have discussed the pathophysiology with the patient. In addition I have provided informational material regarding venous disease to the patient. We have discussed conservative measures including compression, elevation, and exercise. I have also provided a handout regarding appropriate use of compression stockings and where to purchase good compression stockings as well. We are able to provide him with a set of [place] compression socks. He was very thankful for this. I have taken the liberty of ordering venous insufficiency testing with the patient. They will follow up with me after testing. The patient had an opportunity to ask questions regarding the treatment plan. All questions were answered. Imaging studies, laboratory studies and physical exam results were discussed and reviewed in detail. No major barriers to understanding were identified. The patient expressed understanding and agreement with the above treatment plan. The patient is aware they should contact our office by phone for worsening of the current condition or the appearance of new symptoms. Thank you for allowing me to participate in the vascular care of this patient. If you have any questions or concerns regarding the treatment for the above condition please do not hesitate to contact me. The office telephone contact is [phone]. This note is constructed using voice recognition software. While every effort has been made to ensure accuracy, segmental paving supervisor errors may have been included. Thank you for allowing me to participate in the care of your patient. Yours sincerely, HIRO Gonzalez Orders: Orders US venous duplex LE BI 1 Week I83.11 - Varicose veins of right lower extremity with inflammation, I83.12 - Varicose veins of left lower extremity with inflammation Coding Level of Care Code New Pt Level 4 (39753) Diagnoses Varicose veins of both lower extremities with inflammation I83.11; I83.12
--- OUTSIDE RECORDS SUMMARY | 2024-01-23 13:02 | XMS_ITS | Patient Health Record ---
Author Organization [facility] Address [address], [place] [id number] Support Name Relationship Address Phone NINA POWELL Guarantor Unknown [phone] Reason For Referral No Information Medications Medication SIG (Take, Route, Frequency, Duration) Notes Start Date End Date Status atorvastatin Active lisinopril Active loratadine Active amLODIPine Active Aspir 81 Active Plan Of Treatment No Information Insurance Providers Payer Name Payer Address Payer Phone Subscriber Number Group Number Insured Name Patient Relationship to Insured Coverage Start Date Coverage End Date [facility] [address] [place] [phone] [id number] NINA POWELL Self - patient is the insured Medical (General) History Medical History History ICD Code hypertension high cholesterol
== END 2024-01-23 13:30 | disposition home or self-care (01) ==
PROVIDERS: PCP Internal Medicine; Visit Provider Physician Assistant Surgical
DX: I83.11 Varicose veins of right lower extremity with inflammation (principal); I83.12 Varicose veins of left lower extremity with inflammation
CPT/HCPCS: 99204

== ENCOUNTER → 2024-01-23 12:59 | Outpatient (BNVA) | payer OTHER, SELFPAY | PROVIDERS: PCP Internal Medicine; Visit Provider Physician Assistant Surgical | DX: I83.11 Varicose veins of right lower extremity with inflammation (principal); I83.12 Varicose veins of left lower extremity with inflammation | CPT/HCPCS: 99202 ==

== ENCOUNTER → 2024-03-06 13:09 | Outpatient (BNV) | payer OTHER, SELFPAY | PROVIDERS: PCP Internal Medicine; Visit Provider Radiology Diagnostic Radiology | DX: I82.412 Acute embolism and thrombosis of left femoral vein (principal); I83.11 Varicose veins of right lower extremity with inflammation | CPT/HCPCS: 93970 ==

== ENCOUNTER 2024-03-28 13:06 | Outpatient (AMB) | payer OTHER, SELFPAY ==
--- NOTE | 2024-03-28 13:07 | A.OFFVIS_ITS ---
Intake Visit Reasons: follow up s/p 03/06/24 Intake Note: Patient presents for follow up US. States he has pain in his right leg. Accompanied by: Self / Same As Patient Allergies No Known Allergies Allergy (Verified 03/28/24 13:15) [facility] follow up s/p 03/06/24: Details: Very pleasant 68-year-old gentleman presents for follow-up regarding venous insufficiency. Has had continued swelling and discomfort. This is right more so than left. He reports it is a continued source of pain and discomfort. He has used compression with minimal relief. He now presents for follow-up with venous insufficiency testing. [facility] Medical History Elevated PSA Postural dizziness Hypertensive disorder Review of Systems Const Reports as per HPI ENT Reports no additional complaints Card Denies chest pain, Denies chest pain at rest and Denies chest pain with activity Resp Denies chest congestion and Denies cough GI Reports no additional complaints Musc Details: pain over varicosities, aching of lower extremities, swelling, cramping, heaviness and tiredness, itching Denies abnormal gait Skin/Breast Reports pruritus and Denies wounds Neuro Reports no additional complaints and Denies abnormal gait Psych Denies no additional complaints Physical Exam Const General: cooperative, healthy appearing and comfortable Orientation/consciousness: oriented to person, oriented to place and oriented to time Neck Carotids: no bruits Chest Chest palpation & inspection: normal inspection of the chest and normal palpation of entire chest wall Resp Effort & Inspection: normal respiratory effort and able to speak in complete sentences Cardio Rate: regular rate Heart sounds: S1 normal heart sound present and S2 normal heart sound present Peripheral pulses: Peripheral pulses 2+ throughout GI Inspection: Yes normal to inspection Skin Other: +2 edema, large rope-like varicosities greater than 4 mm CEAP Classification C4 - skin color changes Ep - Etiology Primary As - superficial veins P - reflux General skin exam: dry skin Neuro General: oriented to person, oriented to place and oriented to time Extrem Right lower extremity: full ROM, normal capillary refill and edema Left lower extremity: full ROM, normal capillary refill and edema Psych Mental Status: mental status grossly normal Results Reviewed Results Reviewed: Brief summary of venous insufficiency testing is as follows: right great saphenous vein: Positive right small saphenous vein: negative right accessory vein: none present left great saphenous vein: negative left small saphenous vein: negative left accessory vein: none present Please note there is no evidence of any venous aneurysms or significant tortuosity Assessment & Plan Assessment & Plan (1) Varicose veins of right lower extremity with inflammation: Code(s): I83.11 - Varicose veins of right lower extremity with inflammation Category: Medical Plan: This patient has varicose veins with inflammation. They continue to be a source of discomfort for the patient. The patient has tried conservative treatment with compression, leg elevation and exercise program for over 3 months time. They have been compliant with all treatment. This has provided minimal relief for the patient. I do not anticipate this course of treatment will alter the underlying etiology. The patient has been scheduled for lower extremity venous treatment inclusive of --- right great saphenous vein radiofrequency ablation. Risks, benefits, and complications of this procedure has been discussed in detail with the patient including but not limited to bleeding, infection, and the development of a DVT. The patient has demonstrated a clear understanding and has consented. We will schedule the patient as soon as possible. Thank you for allowing us to participate in this patient's care. If there are any questions or concerns please do not hesitate to contact us. Coding Level of Care Code Est Pt Level 4 (24447) Diagnoses Varicose veins of right lower extremity with inflammation I83.11
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
--- OUTSIDE RECORDS SUMMARY | 2024-03-28 14:01 | XMS_ITS | Encounter Summary ---
Author Organization [employer] Address [address] [facility] [address] [place] [address] Care Team Providers Care Railroad Car Letterer Name Role Phone Danny Morgan MD Primary Care Prov ider Reason for Visit * Reason Onset Date Comments Durable Medical Equipment 01/26/2024 Encounter Details Date Type Department Care Team (Late st Contact Info) Description 01/26/2024 Telephone [facility] MEDICINE [address] [place] [address] Danny Morgan MD [address] [place] [address] Durable Medical Equipment Social History Tobacco Use Types Packs/Day Years Used Date Smoking Tobacco: Never Smokeless Tobacco: Never Alcohol Use Standard Drinks/Week Comments Never 0 [...] Orientation Straight 12/06/2021 10 :20 AM EDT documented as of this encounter Miscellaneous Notes * Telephone Encounter - Shameka Velasquez LPN - 01/29/2024 9:20 AM EST Please review message below and advise. If agreed pt ll need documentation \ Tc from pt requesting to get a script for Compression Socks. Pt was told to get them by [facility]. IF any questions contact pt at [phone] * Telephone Encounter - Jaison Shelton - 01/26/2024 11:02 AM EST Tc from pt requesting to get a script for Compression Socks. Pt was told to get them by [facility]. IF any questions contact pt at [phone] documented in this encounter Plan of Treatment Upcoming Encounters Date Type Department Care Team (Late st Contact Info) Description 04/03/2024 9:30 AM EST Telemedicine [facility] MED & PEDS [address] [place] [address] Danny Morgan MD [address] [place] [address] documented as of this encounter Visit Diagnoses Not on filedocumented in this encounter Additional Health Concerns Assessment Noted Time PHQ-9 Depression Total Score: 4 09/09/19 10:31 AM EDT documented as of this encounter Care Teams Railroad Car Letterer Relationship Specialty Start Date End Date Danny Morgan, MD [address] [place] [phone] PCP - General Internal Medicine 06/17/19 documented as of this encounter
--- OUTSIDE RECORDS SUMMARY | 2024-03-28 14:01 | XMS_ITS | Encounter Summary ---
Author Organization [employer] Address [address] [facility] [address] [place] [address] Care Team Providers Care Elevator Dispatcher Name Role Phone Danny Morgan MD Primary Care Prov ider Encounter Details Date Type Department Care Team (Late st Contact Info) Description 03/06/2024 Orders Only [facility] External Provider, [facility] Social History Tobacco Use Types Packs/Day Years [...] AM EDT documented as of this encounter Plan of Treatment Upcoming Encounters Date Type Department Care Team (Late st Contact Info) Description 04/03/2024 9:30 AM EST Telemedicine [facility] CHC MED & PEDS [address] [place] [address] PayanDanny Orellana MD [address] [place] [address] documented as of this encounter Procedures Procedure Name Priority Date/Time Associated Diagnosis Comments [facility] LOWER EXTREMITY VENOUS INSUFFICIENCY BILATERAL Routine 03/06/2024 1:10 PM EST documented in this encounter Results * [facility] Lower Extremity Venous Insufficiency Bilateral (03/06/2024 1:10 PM EST) 03/06/2024 1:10 PM EST Narrative [facility] IMAGING - 03/07/2024 3:38 PM EST ? [facility] ?[address] ?[place] [address] ? Ultrasound Report ? Signed ? Patient: Dumont,Brain P ?MR#: [id number] ?? 159 ? : 1955 ?Acct:[id number] ? Age/Sex: 68 / M ?ADM Date: 03/06/24 ? Loc: HO.US ? Attending Dr: Shwetha BOSCH-C ? Ordering Physician: Shwetha Feng-C ?? Date of Service: 03/06/24 ?? Procedure(s): US venous insuf bilat ?? Accession Number(s): [id number] ? cc: Danny Morgan MD; Shwetha Feng [...] ?? Size: NA ?? Reflux: NA ? US/US venous insuf bilat ?? IMPRESSION: ?? Right: Venous insufficiency, great saphenous vein throughout the entire ?? extremity. ?? 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 ? Left: Venous insufficiency, left common femoral vein. ? Electronically signed by: ??Danny Vaughan MD ??03/07/2024 03:35 PM ?? EST RP ? Dictated By: ?Danny Andrew MD ? Signed By: ?<Electronically signed by Danny George MD in OV> ? 03/07/24 1535 ? DD/ 1310 ? TD/TT: 03/06/24 1345 ? Windows Systems Administrator: ? Procedure Note Donotuseinterpreter, Image - 03/07/2024 [place] [address] Ultrasound Report Signed Patient: Brain Dumont PMR#: [id number] 159 : 6Acct:[id number] Age/Sex: 68 / MADM Date: 03/06/24 Loc: . Attending Dr: Shwetha Feng PA-C Ordering Physician: Shwetha Feng PA-C Date of Service: 03/06/24 Procedure(s): US venous insuf bilat Accession Number(s): [id number] cc: Danny Morgan MD; Shwetha Feng PA-C [...] by: Danny Vaughan MD 03/07/2024 03:35 PM EST Dictated By: Danny Andrew MD Signed By: <Electronically signed by Danny George MDin OV> 03/07/24 1535 DD/ 1310 TD/TT: 03/06/24 1345 Windows Systems Administrator: [facility] External Provider CV VASC ULAR PROCEDURES Final Result [facility] [address] [place], [place] [phone] documented in this encounter Visit Diagnoses Not on filedocumented in this encounter Additional Health Concerns Assessment Noted Time PHQ-9 Depression Total Score: 4 09/09/19 23 10:31 AM EDT documented as of this encounter Care Teams Elevator Dispatcher Relationship Specialty Start Date End Date Danny Morgan MD [address] [place] [address] PCP - General Internal Medicine 06/17/19 documented as of this encounter
--- OUTSIDE RECORDS SUMMARY | 2024-03-28 14:01 | XMS_ITS | Encounter Summary ---
Author Organization [employer] Address 75 [facility] 7t [place] [address] Care Team Providers Care Manufacturing Engineer Chief Name Role Phone Danny Morgan MD Primary Care Prov ider Reason for Visit * Reason Comments Med Refill Encounter Details Date Type Department Care Team ([facility] st Contact Info) Description 01/17/2024 Refill [facility] CHC MED & PEDS [address] [place], [place] [phone] Danny Morgan MD [address] [place] [address] Social History Tobacco Use Types Packs/Day Years [...] Info) Description 04/03/2024 9:30 AM EST Telemedicine [facility] MED & PEDS [address] [place] [address] Danny Morgan MD [address] [place] [address] documented as of this encounter Visit Diagnoses Not on filedocumented in this encounter Additional Health Concerns Assessment Noted Time PHQ-9 Depression Total Score: 4 09/09/19 23 10:31 AM EDT documented as of this encounter Care Teams Manufacturing Engineer Chief Relationship Specialty Start Date End Date Danny Morgan MD [address] [place] [address] PCP - General Internal Medicine 06/17/19 documented as of this encounter
--- OUTSIDE RECORDS SUMMARY | 2024-03-28 14:01 | XMS_ITS | Encounter Summary ---
Author Organization [employer] Address 75 [facility] 7t [place] [address] Care Team Providers Care Cupola Worker Name Role Phone Danny Morgan MD Primary Care Prov ider Reason for Visit * Reason Comments Med Refill Encounter Details Date Type Department Care Team ([facility] st Contact Info) Description 09/26/2023 Refill [facility] CHC MED & PEDS [address] [place], [place] [phone] Milagro Mitchell MD [address] [place] [address] Social History Tobacco Use Types Packs/Day Years [...] Info) Description 04/03/2024 9:30 AM EST Telemedicine [facility] MED & PEDS [address] [place] [address] Danny Morgan MD [address] [place] [address] documented as of this encounter Visit Diagnoses Not on filedocumented in this encounter Additional Health Concerns Assessment Noted Time PHQ-9 Depression Total Score: 4 09/09/19 23 10:31 AM EDT documented as of this encounter Care Teams Cupola Worker Relationship Specialty Start Date End Date Danny Morgan MD [address] [place] [address] PCP - General Internal Medicine 06/17/19 documented as of this encounter
--- OUTSIDE RECORDS SUMMARY | 2024-03-28 14:01 | XMS_ITS | Encounter Summary ---
Author Organization [employer] Address [address] [facility] [address] 7[address] [place] [address] Care Team Providers Care Speech Coach Name Role Phone Danny Morgan MD Primary Care Prov ider Encounter Details Date Type Department Care Team ([facility] st Contact Info) Description 05/25/2023 Orders Only [facility] MEDICINE [address] [place] [address] Provider, MD Esther Social History Tobacco Use Types Packs/Day Years Used Date Smoking Tobacco: Never Smokeless Tobacco: Never Alcohol Use Standard Drinks/Week Comments Never 0 (1 standard drink = 0.6 oz pur e alcohol) Depression Answer Date Recorded Patient Health Questionnaire-9 Score 4 09/08/2022 Housing Stability Answer Date Recorded What is your housing situation today? I have wilsonraymon kebede 11/24/[address] you [...] Info) Description 04/03/2024 9:30 AM EST Telemedicine [facility] CHC MED & PEDS [address] [place] [address] PayanDanny Orellana MD [address] [place] [address] documented as of this encounter Procedures Procedure Name Priority Date/Time Associated Diagnosis Comments US RETROPERITONEAL COMPLETE Routine 06/23/2023 2:16 PM EDT COLONOSCOPY Routine 06/05/2014 8:11 AM EDT documented in this encounter Results * US Retroperitoneal Complete (06/23/2023 2:16 PM EDT) Anatomical Region Laterality Modality Ultrasound 06/23/2023 2:16 PM EDT Narrative 07/04/2023 3:34 PM EDT ? [facility] ?[address] ?[place] [address] ? Ultrasound Report ? Signed ? Patient: Brain Dumont P ?MR#: [id number] ?? 159 ? : 1955 ?Acct:[id number] ? Age/Sex: 68 / M ?ADM Date: 05/17/24 ? Loc: HO.US ? Attending Dr: Jayshree Porter INTERNATIONAL MARKETING COORDINATOR-BC ? Ordering Physician: Jayshree Porter INTERNATIONAL MARKETING COORDINATOR-BC ?? Date of Service: 06/23/23 ?? Procedure(s): US retroperitoneal comp ?? Accession Number(s): [id number] ? cc: Danny Morgan MD; Jayshree Porter [facility] ? EXAMINATION: ?? US RETROPERITONEAL COMPLETE (RENAL) ? CLINICAL INFORMATION: ?? Urge incontinence. ? COMPARISON: ?? None available. ? TECHNIQUE: ?? Real-time imaging of the kidneys and bladder. Technically limited study ?? secondary to body habitus. ? FINDINGS: ? RIGHT KIDNEY: 11.9 x 5.4 x 4.6 cm (SAG x AP x TRV). The kidney is ?? normal in size, contour, and echogenicity. Renal cortical thickness is ?? normal. No renal calculi or hydronephrosis. 1.5 cm simple parapelvic ?? cyst in the lower pole. No follow-up imaging is recommended. ? LEFT KIDNEY: 11.3 x 6.0 x 5.3 cm (SAG x AP x TRV). The kidney is normal ?? in size, contour, and echogenicity. Renal cortical thickness is normal. ?? No calculi or focal parenchymal lesions. No hydronephrosis. ? BLADDER: Trabeculated urinary bladder with multiple small diverticuli. ?? The bladder base is deformed by the enlarged prostate. Prevoid volume ?? 440 mL. Post void volume 250 mL. ? ADDITIONAL FINDINGS: Enlarged prostate with a prominent median lobe; ?? 164 mL. ? US/US retroperitoneal comp ?? IMPRESSION: ?? Enlarged prostate. Thick-walled bladder with numerous diverticuli ?? consistent with sequela of chronic bladder outlet obstruction. No ?? hydronephrosis. Post void bladder residual of 250 mL. ? Dictated By: ?Carlos Trevino MD ? Signed By: ?<Electronically signed by Carlos Trevino MD in OV> ?07/04/23 1530 ? DD/ 1416 ? TD/TT: ? Paper Cone Maker: JK ? Procedure Note Majo Mcwilliams - 07/04/[address] [address] Ultrasound Report Signed Patient: Brain Dumont PMR#: [id number] 159 : 6Acct:[id number] Age/Sex: 68 / MADM Date: 06/23/23 Loc: HO.US Attending Dr: Jayshree HOFFMANN Ordering Physician: Jayshree Porter Date of Service: 06/23/23 Procedure(s): US retroperitoneal comp Accession Number(s): [id number] cc: Danny Morgan MD; Jayshree Porter [facility]- EXAMINATION: US RETROPERITONEAL COMPLETE (RENAL) CLINICAL INFORMATION: Urge incontinence. COMPARISON: None available. TECHNIQUE: Real-time imaging of the kidneys and bladder. Technically limited study secondary to body habitus. FINDINGS: RIGHT KIDNEY: 11.9 x 5.4 x 4.6 cm (SAG x AP x TRV). The kidney is normal in size, contour, and echogenicity. Renal cortical thickness is normal. No renal calculi or hydronephrosis. 1.5 cm simple parapelvic cyst in the lower pole. No follow-up imaging is recommended. LEFT KIDNEY: 11.3 x 6.0 x 5.3 cm (SAG x AP x TRV). The kidney is normal in size, contour, and echogenicity. Renal cortical thickness is normal. No calculi or focal parenchymal lesions. No hydronephrosis. BLADDER: Trabeculated urinary bladder with multiple small diverticuli. The bladder base is deformed by the enlarged prostate. Prevoid volume 440 mL. Post void volume 250 mL. ADDITIONAL FINDINGS: Enlarged prostate with a prominent median lobe; 164 mL. US/US retroperitoneal comp IMPRESSION: Enlarged prostate. Thick-walled bladder with numerous diverticuli consistent with sequela of chronic bladder outlet obstruction. No hydronephrosis. Post void bladder residual of 250 mL. Dictated By: Carlos Trevino MD Signed By: <Electronically signed by Carlos Trevino MD in OV> 07/04/23 1530 DD/ 1416 TD/TT: Paper Cone Maker: TERRI [facility] External Provider IMG US PROCEDURES Final Result * Hm Colonoscopy (06/05/2014 8:11 AM EDT) Historical Provider HEALTH MAINTENANCE Final Result documented in this encounter Visit Diagnoses Not on filedocumented in this encounter Additional Health Concerns Assessment Noted Time PHQ-9 Depression Total Score: 4 09/09/19 23 10:31 AM EDT documented as of this encounter Care Teams Speech Coach Relationship Specialty Start Date End Date Danny Morgan MD [address] [place] [address] PCP - General Internal Medicine 06/17/19 documented as of this encounter
--- OUTSIDE RECORDS SUMMARY | 2024-03-28 14:01 | XMS_ITS | Encounter Summary ---
Author Organization [employer] Address 75 [facility] 7t [place] [address] Care Team Providers Care Airfield Engineer Officer Name Role Phone Danny Morgan MD Primary Care Prov ider Reason for Visit * Reason Onset Date Comments Nurse Triage 05/10/2023 Encounter Details Date Type Department Care Team (Late st Contact Info) Description 05/10/2023 Telephone [facility] MEDICINE [address] [place] [address] Danny Morgan MD [address] [place] [address] Nurse Triage Social History Tobacco Use Types Packs/Day Years [...] encounter Miscellaneous Notes * Telephone Encounter - Radha Myles RN - 05/10/2023 12:11 PM EDT Triage call with [place] Assistant Vice President attempted x2. Voice message left to call [facility] triage line at [phone] * Telephone Encounter - Naomi Dyer - 05/10/2023 11:48 AM EDT Symptom: Foot or Ankle Swelling Outcome: Schedule a same-day appointment or talk to a nurse or provider today Reason: Caller denied all higher acuity questions The caller accepted this outcome Equ[place]inean speaker documented in this encounter Plan of Treatment Upcoming Encounters Date Type Department Care Team (Late st Contact Info) Description 04/03/2024 9:30 AM EST Telemedicine [facility] CHC MED & PEDS [address] [place] [address] Danny Morgan MD [address] [place] [address] documented as of this encounter Visit Diagnoses Not on filedocumented in this encounter Additional Health Concerns Assessment Noted Time PHQ-9 Depression Total Score: 4 09/09/19 10:31 AM EDT documented as of this encounter Care Teams Airfield Engineer Officer Relationship Specialty Start Date End Date Danny Morgan MD [address] [place] [address] PCP - General Internal Medicine 06/17/19 documented as of this encounter
== END 2024-03-28 13:33 | disposition home or self-care (01) ==
PROVIDERS: PCP Internal Medicine; Visit Provider Surgery Vascular Surgery
DX: I83.11 Varicose veins of right lower extremity with inflammation (principal)
CPT/HCPCS: 99214

== ENCOUNTER → 2024-03-28 13:06 | Outpatient (BNVA) | payer OTHER, SELFPAY | PROVIDERS: PCP Internal Medicine; Visit Provider Surgery Vascular Surgery | DX: I83.11 Varicose veins of right lower extremity with inflammation (principal) | CPT/HCPCS: 99212 ==

== ENCOUNTER 2024-07-12 08:59 | Outpatient (REF) | payer OTHER, SELFPAY ==
--- OUTSIDE RECORDS SUMMARY | 2024-07-12 09:20 | XMS_ITS | Encounter Summary ---
Author Organization [employer] Address 75 [facility] 7 [place] [address] Care Team Providers Care Cotton Grower Name Role Phone Danny Morgan MD Primary Care Prov ider Reason for Visit * Reason Comments Med Refill Encounter Details Date Type Department Care Team ([facility] st Contact Info) Description 01/17/2024 Refill [facility] CHC MED & PEDS [address] [place], [place] [phone] Danny Morgan MD [address] [place] [address] Social History Tobacco Use Types Packs/Day Years [...] as of this encounter Plan of Treatment Not on file documented as of this encounter Visit Diagnoses Not on filedocumented in this encounter Additional Health Concerns Assessment Noted Time PHQ-9 Depression Total Score: 4 09/09/19 23 10:31 AM EDT documented as of this encounter Care Teams Cotton Grower Relationship Specialty Start Date End Date Danny Morgan MD [address] [place] [address] PCP - General Internal Medicine 06/17/19 documented as of this encounter
[2024-07-12 14:08] LABS: MANUAL DIFF FLAG NO
[2024-07-12 14:17] LABS: Basophils Percent Auto 0.5 % (0-2); Eosinophils Absolute Auto 0.2 X10*3/uL (0.0-0.4); Eosinophils Percent Auto 2.9 % (0-4); Hematocrit 39.4 % (42.0-52.0); Hemoglobin 12.7 g/dl (14.0-18.0); Imm Gran Abs Auto 0.01 X10*3/uL (0.00-0.03); Imm Gran Pct Auto 0.2 % (0.0-0.4); Lymphocytes Absolute Auto 1.8 X10*3/uL (1.2-4.9); Lymphocytes Percent Auto 30.1 % (20-40); Mean Corpuscular HGB Conc 32.2 g/dl (31.0-36.0); Mean Corpuscular Hemoglobin 28.9 pg (27.0-33.0); Mean Corpuscular Volume 89.5 fL (80.0-98.0); Mean Platelet Volume 11.6 fL (9.4-12.4); Monocytes Absolute Auto 0.4 X10*3/uL (0.1-1.2); Monocytes Percent Auto 7.4 % (2-11); Neutrophils Absolute Auto 3.5 x10*3/uL (2.0-8.3); Neutrophils Percent Auto 58.9 % (45-73); Platelet Count 262 X10*3/uL (160-400); Red Cell Distribution Width 12.9 % (11.0-16.0); White Blood Count 5.9 X10*3/uL (4.8-10.8)
[2024-07-12 14:44] LABS: PSA,Total (Free>4and<10) 11.45 ng/mL (0.00-4.00)
[2024-07-12 15:17] LABS: Alanine Aminotransferase 19 U/L (0-40); Albumin Level 4.3 g/dL (3.5-5.0); Alkaline Phosphatase 107 U/L (39-117); Anion Gap 8 (12-20); Aspartate Amino Transferase 27 U/L (5-37); Bilirubin Total 0.6 mg/dL (0.0-1.0); Blood Urea Nitrogen 13 mg/dL (9-16); Calcium 9.1 mg/dL (8.4-10.2); Carbon Dioxide 29 mmol/L (22-29); Chloride 111 mmol/L (96-108); Cholesterol 190 mg/dL (<200); Estimated Glomerular Filt Rate > 60; Glucose Random 107 mg/dL (60-115); HDL Cholesterol 47 mg/dL (>40); LDL Cholesterol Calculated 119 mg/dL (<100); Potassium 4.1 mmol/L (3.3-5.1); Sodium 144 mmol/L (135-145); Total Protein 7.5 g/dL (6.5-8.0); Triglycerides 124 mg/dL (<150)
== END 2024-07-12 09:00 | disposition home or self-care (01) ==
LOC: HO.CHCLDS 08:59
PROVIDERS: Nurse Practitioner Family; Visit Provider Internal Medicine
DX: I10 Essential (primary) hypertension (principal); R97.20 Elevated prostate specific antigen [PSA]; Z12.5 Encounter for screening for malignant neoplasm of prostate
CPT/HCPCS: 36415; 80053; 80061; 84153; 85025

== ENCOUNTER 2024-07-15 13:41 | Outpatient (AMB) | payer OTHER, SELFPAY ==
--- NOTE | 2024-07-15 13:42 | A.OFFVIS_ITS ---
Intake Visit Reasons: 6m/PSA Intake Note: Patient presents today for follow up visit on: elevated psa PSA: 11.45 Urology Medications: none Blood Thinner: aspirin Intelligence Applications Required: Yes Intelligence Applications Services: Intelligence Applications Present Intelligence Applications Name: Hugh [id number] Accompanied by: Self / Same As Patient Allergies No Known Allergies Allergy (Verified 07/15/24 14:25) Medication List - Last Reconciled 07/15/24 by TAHIRA Riley amlodipine 10 mg PO DAILY aspirin 81 mg PO DAILY atorvastatin 20 mg PO BEDTIME finasteride 5 mg PO DAILY 90 days lisinopril 20 mg PO DAILY meclizine mg PO DAILY metoprolol tartrate 25 mg PO BID HPI Comments Details: Brain is a pleasant 69-year-old Wolof-speaking male patient of Dr. Payan. He has a past medical history of hypertension and postural dizziness. He presents to the office today for follow-up of his elevated PSA. In discussion with the patient today he reports to be doing and feeling well. He reports compliance with finasteride as prescribed. He currently denies any bothersome urinary issues or concerns. In office urinalysis results reviewed with the patient today. PVR 410 mL. We discussed at length incomplete bladder emptying and further treatment options and risks and benefits of these treatment options. Recent PSA results reviewed with the patient today as noted and trended below. When asked he denies urinary urgency, urinary frequency, incontinence, nocturia, hematuria, dysuria, foul smelling urine, changes to urinary stream, flank pain, fever, and or chills. He is happy with his current voiding parameters. Of note, patient underwent prostate biopsy 11/[address] Muller that noted chronic inflammation consistent with prior prostatitis. We discussed at length potential causes of incomplete bladder emptying. All questions were answered. He otherwise offers no other issues or concerns at this time. PSA: 04/01 13.9, 09/29 14.5, 07/31 11.5 PREVIOUS OFFICE NOTE: Add finasteride given size of prostate Follow-up 6 months with PSA Would encourage prostate procedure if experiencing symptoms Elevated PSA with prostatitis PSA 09/29 14.5, 07/31 11.5 Prior prostate imaging 165 g At time of biopsy 230 g High postvoid bladder volume PFSH Medical History Elevated PSA Postural dizziness Hypertensive disorder Review of Systems Const All systems reviewed & are unremarkable except as noted in HPI and below Physical Exam Const General: cooperative, healthy appearing, comfortable, no acute distress, well developed, alert and awake Orientation/consciousness: patient oriented x3 Limitations: language barrier HEENT Head: Yes normal to inspection, Yes normocephalic and Yes atraumatic Ears: hearing grossly normal bilaterally Eyes General: appearance normal, both eyes and all related structures Neck Neck: Yes normal visual inspection and Yes trachea midline Chest Chest palpation & inspection: normal inspection of the chest Resp Effort & Inspection: normal respiratory effort and able to speak in complete sentences Cardio Rate: regular rate GI Inspection: Yes normal to inspection General: Yes no CVA tenderness Back/Spine/Pelvis Back: no CVA tenderness Skin General skin exam: no rashes or lesions noted Neuro General: patient oriented x3 Extrem General: Yes normal to inspection Psych Appearance: grossly normal and well kempt Mental Status: mental status grossly normal Speech and movement: Normal speech and movement present and Clear speech present Affect: normal affect Attitude: cooperative Thought process: Normal thought process present Thought content: Normal thought content present Insight: Fair insight present (Psych) Judgement: Fair judgement present (Psych) Office Procedures Post Void Residual Post Residual Void Post Void Residual (PVR): 410 83415-Gpsm Void Residual by ultrasound Results AMB Urinalysis, Automated UA Leukoctes 0 Melyssa/uL Last Edit by BEATRICE Springer on 07/15/24 13:55 UA Nitrite Last Edit by BEATRICE Springer on 07/15/24 13:55 UA Urobilinogen 0.2 mg/dL Last Edit by BEATRICE Springer on 07/15/24 13:5 5 UA Protein 0 mg/dL Last Edit by BEATRICE Springer on 07/15/24 13:55 UA pH 6.0 Last Edit by BEATRICE Springer on 07/15/24 13:55 UA Blood 0 Almas/uL Last Edit by Lona Guardado, [facility] on 07/15/24 13:55 UA Specific [place] 1.010 Last Edit by Lona Guardado, [facility] on 07/15/24 13: 55 UA Ketone Last Edit by Lona Guardado, [facility] on 07/15/24 13:55 UA Bilirubin 0 mg/dL Last Edit by Lona Guardado, [facility] on 07/15/24 13:55 UA Glucose 0 mg/dL Last Edit by Lona Guardado, [facility] on 07/15/24 13:55 Results Reviewed Results Reviewed: Laboratory Last Values Urine pH (Auto) 6.0 07/15/24 13:47 Specific [place] (Auto) 1.010 07/15/24 13:47 Urine Protein (Auto) 0 mg/dL 07/15/24 13:47 Glucose (UA)(Auto) 0 mg/dL 07/15/24 13:47 Urine Blood (Auto) 0 Almas/uL 07/15/24 13:47 Urine Bilirubin (Auto) 0 mg/dL 07/15/24 13:47 Urine Urobilinogen (Auto) 0.2 mg/dL 07/15/24 13:47 Leukocyte Esterase (Auto) 0 Melyssa/uL 07/15/24 13:47 Assessment & Plan Assessment & Plan (1) Elevated PSA: Code(s): R97.20 - Elevated prostate specific antigen [PSA] Category: Medical (2) Enlarged prostate: Code(s): N40.0 - Benign prostatic hyperplasia without lower urinary tract symptoms Category: Medical (3) Bladder wall thickening: Code(s): N32.89 - Other specified disorders of bladder Category: Medical (4) Diverticula, bladder: Code(s): N32.3 - Diverticulum of bladder Category: Medical (5) Incomplete bladder emptying: Code(s): R33.9 - Retention of urine, unspecified Category: Medical Plan In office urinalysis results reviewed with the patient today; as noted above. PVR 410 mL. We discussed at length incomplete bladder emptying as well as further treatment options and risks and benefits of these treatment options We discussed potential causes of incomplete bladder emptying Start Flomax as discussed and prescribed. We discussed recent PSA results reviewed with the patient today; as noted above. Will obtain MRI of the prostate for further assessment evaluation. We also discussed lifestyle modifications such as double voiding to assist with incomplete bladder emptying as well as sitting when urinating to relax pelvis and assist with incomplete bladder emptying. Patient currently denies any bothersome urinary issues or concerns. He reports be happy with current voiding parameters. Continue finasteride as discussed and prescribed Follow-up in 1-3 months with imaging, labs, and PVR; or sooner with any issues, concerns, and or questions. Orders: Orders PSA,Total (Free>4and<10) 07/12/24 R97.20 - Elevated prostate specific antigen [PSA] AMB Urinalysis Automated Today Z13.9 - Encounter for screening, unspecified AMB Post Void Residual by ultrasound Today N40.0 - Benign prostatic hyperplasia without lower urinary tract symptoms PSA,Total (Free>4and<10) Today N40.0 - Benign prostatic hyperplasia without lower urinary tract symptoms, R97.20 - Elevated prostate specific antigen [PSA] MR Prostate wo/w con Today N40.0 - Benign prostatic hyperplasia without lower urinary tract symptoms, R97.20 - Elevated prostate specific antigen [PSA] Medications: New tamsulosin 0.4 mg PO BEDTIME 30 caps 3RF 30 days N40.1 - Benign prostatic hyperplasia with lower urinary tract symptoms, R35.1 - Nocturia Patient Instructions: The patient had an opportunity to ask questions regarding the treatment plan. All questions were answered. Physical exam, labs, and imaging were discussed and reviewed in detail. As well as risks, benefits, and discussion of treatment choices. No major barriers to understanding were identified. The patient expressed understanding and agreement with the above treatment plan. The patient was made aware they should contact our office by phone for worsening of their current condition, the appearance of new symptoms, or with any questions or concerns. Compliance is encouraged with any medications and follow up testing that is ordered. It is a privilege to be allowed the opportunity to participate in? your urological care.? Again, if you have any questions or concerns If you have any questions or concerns please do not hesitate to contact me. The office is [phone]. This note is constructed using voice recognition software. While every effort has been made to ensure accuracy director of sales errors may have been included. Yours sincerely, TAHIRA Riley Coding Level of Care Code Est Pt Level 4 (33796) Complex EM visit Add On G2211 Diagnoses Elevated PSA R97.20 Enlarged prostate N40.0 Bladder wall thickening N32.89 Diverticula, bladder N32.3 Incomplete bladder emptying R33.9 CPT Codes Post Residual Void - PVR CPT Code: 96010-Ucut Void Residual by ultrasound ([id number])
--- OUTSIDE RECORDS SUMMARY | 2024-07-15 15:31 | XMS_ITS | Encounter Summary ---
Author Organization [employer] Address [address] [facility] 7t [place] [address] Care Team Providers Care Parts Sales Associate Name Role Phone Danny Morgan MD Primary Care Prov ider Encounter Details Date Type Department Care Team (Late st Contact Info) Description 07/12/2024 Orders Only GENERIC EXTERNAL DATA DEPARTMENT Provider, Generic External Data Social History Tobacco Use Types Packs/Day Years Used Date Smoking Tobacco: Never Smokeless Tobacco: Never Alcohol Use Standard Drinks/Week Comments Never 0 (1 standard drink = 0.6 oz pur e alcohol) Depression Answer Date Recorded Patient Health Questionnaire-9 Score 2 07/02/2024 Patient Health Questionnaire-9 Score 2 07/02/2024 Last PHQ-9: Questionnaire Data Not on file 0 07/02/2024 Housing Stability Answer Date Recorded What is your housing situation today? I have wilson kebede 07/02/[address] you li ve. Do you have problems with any of the following? None of the above 07/02/2024 Food Insecurity Answer Date Recorded Within the past 12 months, y ou worried that your food would run out before you got money to buy more: Never True 07/02/2024 Within the past 12 months,th e food you bought just didn't last and you didn't have enough money to get more: Never True Transportation Answer Date Recorded In the past 12 months, has l ack of transportation kept you from medical appts, meetings, work or from getting things needed for daily living? No 07/02/2024 Utilities Answer Date Recorded In the past 12 months, has t he electric, gas, oil or water company threatened to shut off services in your home? No 07/02/2024 Depression Answer Date Recorded Patient Health Questionnaire-2 Score 2 07/02/2024 Internet Access Answer Date Recorded Internet Access Q1 Yes 07/02/2024 Internet Access Q2 Not on file 07/02/2024 Sex and Gender Information Value Date Recorded Sex Assigned at Male 12/06/2021 10:20 AM EDT Legal Sex Male 10:20 AM EDT Gender Identity Male 12/06/2021 10:20 AM EDT Sexual Orientation Straight 12/06/2021 10 :20 AM EDT documented as of this encounter Plan of Treatment Not on file documented as of this encounter Procedures Procedure Name Priority Date/Time Associated Diagnosis Comments PSA, TOTAL WITH REFLEX TO PSA, FREE Routine 07/12/2024 12:00 AM EDT documented in this encounter Results * (ABNORMAL) PSA, Total With Reflex to PSA, Free (07/12/2024 12:00 AM EDT) PSA,Total (Free>4and<10) 11.45(H ) 0.00 - 4.00 ng/mL [facility] Comment:A Free PSA was not p erformed: The percentage of Free PSA can be used to enhance the differentiation of prostate cancer from benign prostatic disease in subjects whose PSA levels are between 4.0 and 10.0 ng/mL. For subjects whose PSA levels are below 4.0 or above 10.0 ng/mL, the risk of prostate cancer is determined on the basis of the PSA alone. Therefore the % Free PSA is recommended only for those subjects whose PSA levels are between 4.0 and 10.0 ng/mL.PSA methodology: Olivas Alinity i ChemiluminescentMicroparticle Immunoassay (CMIA) 07/12/2024 07/12/2024 us Generic External Data Provider LAB BLOOD ORDERAB LES Final Result [facility] [address] [place] [phone] documented in this encounter Visit Diagnoses Not on filedocumented in this encounter Additional Health Concerns Assessment Noted Time PHQ-9 Depression Total Score: 2 07/03/19 25 1:21 PM EDT documented as of this encounter Care Teams Parts Sales Associate Relationship Specialty Start Date End Date Danny Morgan MD [address] [place] [phone] PCP - General Internal Medicine 06/17/19 documented as of this encounter
== END 2024-07-15 14:27 | disposition home or self-care (01) ==
LOC: HO.HUSH 13:42
PROVIDERS: PCP Internal Medicine; Visit Provider Nurse Practitioner Family
DX: R97.20 Elevated prostate specific antigen [PSA] (principal); N40.0 Benign prostatic hyperplasia without lower urinary tract symptoms; N32.89 Other specified disorders of bladder; N32.3 Diverticulum of bladder; R33.9 Retention of urine, unspecified; Z13.9 Encounter for screening, unspecified
CPT/HCPCS: 99214; G2211

== ENCOUNTER → 2024-07-15 13:41 | Outpatient (BNVA) | payer OTHER, SELFPAY | PROVIDERS: PCP Internal Medicine; Visit Provider Nurse Practitioner Family | DX: N40.0 Benign prostatic hyperplasia without lower urinary tract symptoms (principal); R97.20 Elevated prostate specific antigen [PSA]; N32.89 Other specified disorders of bladder; N32.3 Diverticulum of bladder; R33.9 Retention of urine, unspecified | CPT/HCPCS: 51798; 81003; 99212 ==

== ENCOUNTER 2024-07-19 12:34 | Outpatient (AMB) | payer OTHER, SELFPAY ==
--- OUTSIDE RECORDS SUMMARY | 2024-07-19 13:07 | XMS_ITS | Encounter Summary ---
Author Organization [employer] Address [address] [place] [address] 7 [place] [address] Care Team Providers Care Director Of Quality Name Role Phone Danny Morgan MD Primary Care Prov ider Reason for Visit * Reason Onset Date Comments Results 07/15/2024 Med Refill 07/15/2024 Encounter Details Date Type Department Care Team (Latest Contact Info) Description 07/15/2024 Results Follow-Up [facility] [address] [place] [address] Danny Morgan MD [address] [place] [address] CBC auto differential, Comprehensive Metabolic Panel, Lipid Panel, Standard Social History Tobacco Use Types Packs/Day Years [...] encounter Miscellaneous Notes * Telephone Encounter - Ashley Clement RN - 07/16/2024 11:36 AM EDT TC to pt. human resources benefits manager used. RN explained message below. Pt verbalized understanding and agreement with the plan of care. ----- Message from Danny Jarrett MD sent at 07/15/2024 8:13 PM EDT ----- Please call the patient regarding his abnormal result. Cholesterol/ldl not at target will increase atorvastatin to 40mg ----- Message ----- From: Interface, Lab Results In Sent: 07/12/2024 2:18 PM EDT To: Danny Jarrett MD documented in this encounter Plan of Treatment Not on file documented as of this encounter Visit Diagnoses Not on filedocumented in this encounter Additional Health Concerns Assessment Noted Time PHQ-9 Depression Total Score: 2 07/03/19 25 1:21 PM EDT documented as of this encounter Care Teams Director Of Quality Relationship Specialty Start Date End Date PayanDanny Orellana MD [address] [place] [phone] PCP - General Internal Medicine 06/17/19 documented as of this encounter
--- NOTE | 2024-07-19 13:44 | MHC.OFFVIS ---
Intake Visit Reasons: Right GSV RFA Canine Service Instructor Trainer Required: No Accompanied by: Self / Same As Patient Allergies No Known Allergies Allergy (Verified 07/19/24 13:45) [facility] Medical History Elevated PSA Postural dizziness Hypertensive disorder Office Procedures Vascular Office Procedure Details Details: Diagnosis: Varicose veins with inflammation of right leg Procedure: Endovenous radiofrequency ablation of the right great saphenous vein(s) of the lower extremity. Anesthesia: Local infiltration 5 cc, Tumescent 400 cc. Estimated Blood Loss: minimal Specimen: Varicose veins The patient was transferred to the procedure suite and the insufficient saphenous vein was mapped by ultrasound and diagrammed on the overlying skin. The depth and diameter of the vein(s) to be treated was documented. The varicose tributary veins and suitable access sites were identified and mapped as well. The patient was then positioned supine on the procedure table. The affected limb was prepped and draped in the usual sterile fashion. The RF catheter was placed on the sterile field, flushed and wiped down, prepared, and connected by a sterile cable. The patient was placed in supine position and local anesthesia was instilled in the skin overlying the access site. A skin incision was made overlying the identified and mapped great saphenous vein entry site. The vein was accessed using ultrasound guidance and the Seldinger technique, a guide wire was introduced through the needle, which was then exchanged over the guide wire for a 6F sheath, which was secured in place. The guide wire was removed and the sheath was flushed. The RF catheter was placed into the vein through the sheath and preferentially, imaging was used to place the catheter tip just inferior to the superficial epigastric vein to preserve normal physiological flow in that vein. Additionally, it was confirmed by ultrasound guidance that the catheter tip was also placed a minimum of 1.5cm distal to the saphenofemoral junction. After the RF catheter position was verified by ultrasound, tumescent anesthesia was infiltrated, under ultrasound guidance, precisely into the perivenous compartment along the entire length of vein from the entry site to the saphenofemoral junction until a halo of fluid was noted around the vein. The patient was then placed in supine position to further exsanguinate the superficial venous system. After RF catheter position was again confirmed with ultrasound imaging, and under direct external compression along the length of the heating element, RF energy was applied. The vein was segmentally ablated by heating a 8 cm segment and then indexing the catheter forward by 7.5 cm until the treatment length is completed. Device temperature was maintained at 120 plus or minus 5 degrees C with an initial power level of 40W dropping to below 20W for each treatment. Total vein length treated 44 cm Total cycles of RF 7. Repeat ultrasound of the saphenous vein was performed, confirming successful treatment. The catheter and sheath were withdrawn and hemostasis established with direct pressure. After assuring hemostasis, the skin incision over the saphenous vein was closed with a bandage and a compression wrap, and/ or graduated compression stocking was applied from the level of the foot to the most proximal level of the thigh. 13756 - Endovenous RF, 1st Vein All charges added?: Procedure code (CPT) selection complete Assessment & Plan Assessment & Plan (1) Varicose veins of right lower extremity with inflammation: Comment: 07/19/2024 - right great saphenous vein ablation Code(s): I83.11 - Varicose veins of right lower extremity with inflammation Category: Medical Plan: See op note Coding Level of Care Code Est Pt Level 4 (83846) Diagnoses Varicose veins of right lower extremity with inflammation I83.11 CPT Codes Details - Vascular 1: 48740 - Endovenous RF, 1st Vein ([id number])
== END 2024-07-19 14:25 | disposition home or self-care (01) ==
LOC: HO.HVS 12:35
PROVIDERS: PCP Internal Medicine; Visit Provider Surgery Vascular Surgery
DX: I83.11 Varicose veins of right lower extremity with inflammation (principal)
CPT/HCPCS: 36475

== ENCOUNTER → 2024-07-19 12:34 | Outpatient (BNVA) | payer OTHER, SELFPAY | PROVIDERS: PCP Internal Medicine; Visit Provider Surgery Vascular Surgery | DX: I83.11 Varicose veins of right lower extremity with inflammation (principal) | CPT/HCPCS: 36475; J2003; J2004 ==

== ENCOUNTER 2024-10-14 11:07 | Outpatient (REF) | payer OTHER, SELFPAY ==
--- OUTSIDE RECORDS SUMMARY | 2024-10-14 13:37 | XMS_ITS | Encounter Summary ---
Author Organization [employer] Address [address] [facility] 7t [place] [address] Care Team Providers Care Tool Keeper Name Role Phone Danny Morgan MD Primary Care Prov ider Encounter Details Date Type Department Care Team ([facility] st Contact Info) Description 05/25/2023 Orders Only [facility] [address] [place] [address] ProviderEsther MD Social History Tobacco Use Types Packs/Day Years Used Date Smoking Tobacco: Never Smokeless Tobacco: Never Alcohol Use Standard Drinks/Week Comments Never 0 (1 standard drink = 0.6 oz pur e alcohol) Depression Answer Date Recorded Patient Health Questionnaire-9 Score 4 09/08/2022 Housing Stability Answer Date Recorded What is your housing situation today? I have wilson delio 11/24/[address] you li [...] RETROPERITONEAL COMPLETE Routine 06/23/2023 2:16 PM EDT HM COLONOSCOPY Routine 06/05/2014 8:11 AM EDT documented in this encounter Results * US Retroperitoneal Complete (06/23/2023 2:16 PM EDT) Anatomical Region Laterality Modality Ultrasound 06/23/2023 2:16 PM EDT Narrative 07/04/2023 3:34 PM EDT [place] [address] Ultrasound Report Signed Patient: Brain Dumont MR#: [id number] 159 : 1955 Acct:[id number] Age/Sex: 68 / M ADM Date: 06/23/23 Loc: HO.US Attending Dr: Jayshree HOFFMANN Ordering Physician: Jayshree Porter Date of Service: 06/23/23 Procedure(s): US retroperitoneal comp Accession Number(s): [id number] cc: Danny Morgan MD; Jayshree Porter EXAMINATION: US RETROPERITONEAL COMPLETE (RENAL) CLINICAL INFORMATION: [...] in OV> 07/04/23 1530 DD/ 1416 TD/TT: Logistics Administrator: TERRI Procedure Note Donotuseinterpreter, Image - 07/04/2023 [place] [address] Ultrasound Report Signed Patient: Brain Dumont PMR#: [id number] : 6Acct:[id number] Age/Sex: 68 / MADM Date: 06/23/23 Loc: HO.US Attending Dr: Jayshree HOFFMANN Ordering Physician: Jayshree Porter Date of Service: 06/23/23 Procedure(s): US retroperitoneal comp Accession Number(s): [id number] cc: Danny Morgan MD; Jayshree Porter EXAMINATION: US RETROPERITONEAL COMPLETE (RENAL) CLINICAL INFORMATION: [...] in OV> 07/04/23 1530 DD/ 1416 TD/TT: Logistics Administrator: TERRI [facility] External Provider IMG US PROCEDURES Final Result * Hm Colonoscopy (06/05/2014 8:11 AM EDT) Historical Provider HEALTH MAINTENANCE Final Result documented in this encounter Visit Diagnoses Not on filedocumented in this encounter Additional Health Concerns Assessment Noted Time PHQ-9 Depression Total Score: 4 09/09/19 23 10:31 AM EDT documented as of this encounter Care Teams Tool Keeper Relationship Specialty Start Date End Date Danny Morgan MD [address] [place] [phone] PCP - General Internal Medicine 06/17/19 documented as of this encounter
--- OUTSIDE RECORDS SUMMARY | 2024-10-14 13:37 | XMS_ITS | Clinical Summary ---
Author Organization [employer] Address [address] [place] [address] 7t [place] [address] Care Team Providers Care Senior Marketing Data Analyst Name Role Phone Danny Morgan MD Primary Care Prov ider Allergies No known active allergies Medications Acetaminophen Extra Strength 500 MG tablet TAKE 2 TABLETS BY MOUTH EVERY 6 HOURS NEEDED FOR PAIN OR FEVER 03/24/19 22 Active Blood Pressure Monitoring (Omron 3 Series BP Monitor) device Check blood pressure on arm as directed ONCE OR twice daily 03/01/19 22 Active lisinopril 20 MG tablet TOME KATINA TABLETA TODOS LOS BROWER 90 tablet 3 09/11/19 24 Active metoprolol tartrate (Lopressor) 25 MG tabletIndication s:Primary hypertension TAKE 1 TABLET BY MOUTH TWICE A DAY 180 tablet 3 12/06/19 24 Active escitalopram (Lexapro) 5 MG tablet TAKE 1 TABLET BY MOUTH EVERY DAY 30 tablet 2 07/05/19 25 Active escitalopram (Lexapro) 5 MG tablet Take 1 tablet (5 mg) by mouth Once per day. 90 tablet 3 07/03/19 25 026 Active atorvastatin (Lipitor) 40 MG tablet Take 1 tablet (40 mg) by mouth Once per day. 90 tablet 3 07/16/19 25 Active aspirin (Aspirin Low Dose) 81 MG EC tablet TAKE 1 TABLET BY MOUTH EVERY DAY 90 tablet 1 08/27/19 25 Active meclizine (Antivert) 12.5 MG tabletIndication s:Postural dizziness TAKE 1 TABLET BY MOUTH IF NEEDED IN THE MORNING, AT NOON, AND AT BEDTIME FOR DIZZINESS NEEDED 30 tablet 1 10/02/19 25 Active cetirizine (ZyrTEC) 10 MG tablet TAKE 1 TABLET (10 MG) BY MOUTH IF NEEDED EACH DAY FOR RHINITIS OR ALLERGIES. 90 tablet 3 10/15/19 25 026 Active amLODIPine (Norvasc) 10 MG tablet TOME KATINA TABLETA TODOS LOS BROWER 90 tablet 1 10/15/19 25 Active cetirizine (ZyrTEC) 10 MG tablet Take 1 tablet (10 mg) by mouth if needed each day for rhinitis or allergies. 90 tablet 3 10/23/19 24 025 Discontinued amLODIPine (Norvasc) 10 MG tablet TOME KATINA TABLETA VINS LOS BROWER 90 tablet 1 04/16/19 25 025 Discontinued meclizine (Antivert) 12.5 MG tabletIndication s:Postural dizziness TAKE 1 TABLET BY MOUTH IF NEEDED IN THE MORNING, AT NOON, AND AT BEDTIME FOR DIZZINESS NEEDED 30 tablet 1 07/05/19 25 025 Discontinued Active Problems Problem Noted Date Diagnosed Date Varicose veins of both lower extremities with pa in 07/02/2024 Assessment & Plan (07/02/2024 1:41 PM EDT): Will order bilateral knee high compression stocking 30-40mmhg, he is being evaluated by vascular surgery Mixed conductive and sensori neural hearing loss of both ears 07/02/2024 Assessment & Plan (07/02/2024 1:42 PM EDT): Will place audiology referral for re-test. Anxiety 04/03/2024 Assessment & Plan (04/03/2024 1:57 PM EST): Did not lliked the hydroxyzine side effects, will start on escitalopram, follow up in 2-3 months, Chest pain, rule out acute myocardial infarction 03/31/2023 Screening for colon cancer 12/08/2022 Assessment & Plan (07/02/2024 1:41 PM EDT): Will refer for screening colon cancer Assessment & Plan (12/08/2022 11:07 AM EDT): [...] urology follow up, will send consult to [facility] as he prefers Mixed hyperlipidemia 02/23/2022 [...] reapear Hypertensive disorder 03/14/2014 Assessment & Plan (07/02/2024 1:42 PM EDT): Controlled, keep low sodium diet and exercise as tolerated, follow up in 3-4 months, target <140/90 Assessment & Plan (04/03/2024 1:56 PM EST): Controlled, keep low sodium diet and exercise as tolerated, keep bp log, target <140/90, new labs ordered Assessment & Plan (10/23/2023 1:12 PM EDT): [...] Encounters Date Type Department Care Team Description 10/12/2024 Refill [facility] [address] [place] [address] Danny Morgan MD 09/28/2024 Refill [facility] [address] [place] [address] Danny Morgan MD Postural dizziness 08/25/2024 Refill [facility] [address] [place] [address] Danny Morgan MD 07/15/2024 Results Follow-Up [facility] [address] [place] [address] Danny Morgan MD CBC auto differential, Comprehensive Metabolic Panel, Lipid Panel, Standard from Last 3 Months Immunizations Immunization Administration Dates Next Due Influenza injectable quadriv [...] Sign Reading Time Taken Comments Blood Pressure 124/81 07/02/2024 1:33 PM EDT Pulse 70 07/02/2024 1:33 PM EDT Temperature 36.9 C (98.4 F) 07/10/2023 1:27 PM EDT Respiratory Rate 16 07/10/2023 1:27 PM EDT Oxygen Saturation - - Inhaled Oxygen Concentration - - Weight 74.2 kg (163 lb 9.6 oz) 07/10/2023 1:27 P M EDT Height 167.6 cm (5' 6 ) 07/10/2023 1:27 PM EDT Body Mass Index 26.41 07/10/2023 1:27 PM EDT Plan of Treatment Health Maintenance Due Date Last Done Comments CT Colonography 1955 FIT DNA/Cologuard 1955 FIT 1955 FOBT 1955 Sigmoidoscopy 1955 Pneumococcal Vaccine: 50+ Years (1 of 1 - PCV) 04/08/2005 Zoster Vaccines (1 of 2) 04/08/2005 Colonoscopy 06/05/2024 06/05/2014 Colorectal Cancer Screening 06/05/2024 Tobacco Screening 07/09/2024 07/10/2023 DTaP/Tdap/Td Vaccines (2 - Td or Tdap) 08/11/2024 08/11/2014 COVID-19 Vaccine (3 - season) 2024 06/15/2021, 05/10/2021 Influenza Vaccine (#1) 2024 0, 02/02/2016, 03/14/2014 Alcohol/Substance Use Screening 07/02/2025 07/02/2024 Depression Screening 07/02/2025 07/02/2024, 07/03/19 SDOH Screening 07/02/2025 07/02/2024 Lipid Panel 07/12/2029 07/12/2024, 0702/2023, 02/25/2022, Additional history exists RSV Patients and Patients [...] patient's age to complete this topic Meningococcal B Vaccine Aged Out No l onger eligible based on patient's age to complete [...] Procedure Name Priority Date/Time Associated Diagnosis Comments LIPID PANEL, STANDARD Routine 07/12/2024 12:00 AM EDT Primary hypertension HEPATITIS C AB W/REFL TO HCV RNA, QN, PCR Routine 02/25/2022 9:56 AM EST Primary hypertension Mixed hyperlipidemia HM COLONOSCOPY Routine 06/05/2014 8:11 AM EDT from Last 3 Months or Most Recently Relevant to Health Maintenance Results * (ABNORMAL) Lipid Panel, Standard (07/12/2024 12:00 AM EDT) Triglycerides 124 <150 mg/dL [facility] Comment:Desirable Triglyceri de: less than 150 mg/dLBorderline High Triglyceride 150-199 mg/dLHigh Triglyceride: 200-499 mg/dLVery High Triglyceride: greater than or equal to 5OO mg/dL Cholesterol 190 <200 mg/dL [facility] Comment:Desirable Cholestero l: less than 200 mg/dLBorderline High Cholesterol: 200-239 mg/dLHigh Cholesterol: greater than 239 mg/dL LDL Cholesterol Calculated 119(H) <100 mg/dL [facility] Comment:Desirable LDL: less than 100 mg/dLNear Optimal/Above Optimal LDL: 110- 129 mg/dLBorderline High LDL: 130-159 mg/dLHigh LDL: 160-189 mg/dLVery High LDL: greater than or equal to 190 mg/dL HDL Cholesterol 47 >40 mg/dL [facility] Comment:Desirable HDL: great er than 40 mg/dL Note: This HDL assay may give artificially low results in patients with liver disease. Blood Venous blood specimen / Unknown 07/12/2024 07/12/2024 Danny Jarrett MD LAB BLOOD ORDERABL ES Final Result [facility] [address] [place] [phone] * Hepatitis C Antibody with Reflex to HCV, RNA, Quantitative, Real-Time PCR (02/25/2022 9:56 AM EST) Hepatitis C Antibody NON-REACT FALLON NON-REACT FALLON [facility] Index 0.11 <1.00 [facility] Comment: HCV antibody was non-reactive. There is no laboratory evidence of HCV infection. In most cases, no further action is required. However, if recent HCV exposure is suspected, a test for HCV RNA (test code 91237) is suggested. For additional information please refer to http://education.[employer]/faq/LRO88o1 (This link is being provided for informational/ educational purposes only.) Blood Venous blood specimen / Unknown 02/25/2022 9:56 AM EST 02/25/2022 9:56 AM EST Narrative [facility] - 03/01/2022 8:54 PM EST FASTING:YES FASTING: YES Danny Jarrett MD LAB BLOOD ORDERABL ES Final Result [facility] [address] [facility], [facility], [place] [address] [employer] [facility] [address] [facility], ([address]) [place] [address] * Colonoscopy (06/05/2014 8:11 AM EDT) us Historical Provider HEALTH MAINTENANCE Final Result from Last 3 Months or Most Recently Relevant to Health Maintenance Insurance [id number] [employer] [employer] (O D-SNP) [place] S[place] [id number] Care Teams Senior Marketing Data Analyst Relationship Specialty Start Date End Date Danny Morgan MD [address] [place] [phone] PCP - General Internal Medicine 06/17/19
--- OUTSIDE RECORDS SUMMARY | 2024-10-14 13:37 | XMS_ITS | Encounter Summary ---
Author Organization [employer] Address [address] [facility] [address] [place] [address] Care Team Providers Care Grab Setter Name Role Phone Danny Morgan MD Primary Care Prov ider Reason for Visit * Reason Onset Date Comments Durable Medical Equipment 01/26/2024 Encounter Details Date Type Department Care Team ([facility] st Contact Info) Description 01/26/2024 Telephone [facility] [address] [place] [address] Danny Morgan MD [address] [place] [address] Durable Medical Equipment Social History Tobacco Use [...] Pt was told to get them by [facility]. IF any questions contact pt at [phone] * Telephone Encounter - Jaison Shelton - 01/26/2024 11:02 AM EST Tc from pt requesting to get a script for Compression Socks. Pt was told to get them by [facility]. IF any questions contact pt at [phone] documented in this encounter Plan of Treatment Not on file documented as of this encounter Visit Diagnoses Not on filedocumented in this encounter Additional Health Concerns Assessment Noted Time PHQ-9 Depression Total Score: 4 09/09/19 23 10:31 AM EDT documented as of this encounter Care Teams Grab Setter Relationship Specialty Start Date End Date Danny Morgan MD [address] [place] [phone] PCP - General Internal Medicine 06/17/19 documented as of this encounter
--- OUTSIDE RECORDS SUMMARY | 2024-10-14 13:37 | XMS_ITS | Encounter Summary ---
Author Organization [employer] Address [address] [facility] [address] [place] [address] Care Team Providers Care Pulmonary Physician Name Role Phone Danny Morgan MD Primary Care Prov ider Reason for Visit * Reason Comments Med Refill Encounter Details Date Type Department Care Team ([facility] st Contact Info) Description 01/17/2024 Refill [facility] [address] [place], [place] [phone] Danny Morgan MD [address] [place] [address] Social History Tobacco Use Types Packs/Day Years [...] documented as of this encounter Care Teams Pulmonary Physician Relationship Specialty Start Date End Date Danny Morgan MD [address] [place] [phone] PCP - General Internal Medicine 06/17/19 documented as of this encounter
--- OUTSIDE RECORDS SUMMARY | 2024-10-14 13:37 | XMS_ITS | Encounter Summary ---
Author Organization [employer] Address 75 [facility] 7 [place] [address] Care Team Providers Care General Scrap Worker Name Role Phone Danny Morgan MD Primary Care Prov ider Reason for Visit * Reason Comments Med Refill Encounter Details Date Type Department Care Team ([facility] st Contact Info) Description 10/12/2024 Refill [facility] MED & PEDS [address] [place], [place] [phone] Danny Morgan MD [address] [place] [address] Social History Tobacco Use Types Packs/Day Years [...] documented as of this encounter Care Teams General Scrap Worker Relationship Specialty Start Date End Date Danny Morgan MD [address] [place] [address] PCP - General Internal Medicine 06/17/19 documented as of this encounter
--- OUTSIDE RECORDS SUMMARY | 2024-10-14 13:37 | XMS_ITS | Encounter Summary ---
Author Organization [email or web address] Address 75 [facility] 7 [place] [address] Care Team Providers Care Water Main Pipe Layer Name Role Phone Danny Morgan MD Primary Care Prov ider Reason for Visit * Reason Onset Date Comments Nurse Triage 05/10/2023 Encounter Details Date Type Department Care Team ([facility] st Contact Info) Description 05/10/2023 Telephone [facility] MEDICINE [address] [place] [address] Danny Morgan MD [address] [place] [address] Nurse Triage Social History Tobacco Use Types [...] 05/10/2023 12:11 PM EDT Triage call with [place] Roller Printer attempted x2. Voice message left to call [facility] triage line at [phone] * Telephone Encounter - Naomi Dyer - 05/10/2023 11:48 AM EDT Symptom: Foot or Ankle Swelling Outcome: Schedule a same-day appointment or talk to a nurse or provider today Reason: Caller denied all higher acuity questions The caller accepted this outcome Yoruba speaker documented in this encounter Plan of Treatment Not on file documented as of this encounter Visit Diagnoses Not on filedocumented in this encounter Additional Health Concerns Assessment Noted Time PHQ-9 Depression Total Score: 4 09/09/19 23 10:31 AM EDT documented as of this encounter Care Teams Water Main Pipe Layer Relationship Specialty Start Date End Date Danny Morgan MD [address] [place] [address] PCP - General Internal Medicine 06/17/19 documented as of this encounter
--- OUTSIDE RECORDS SUMMARY | 2024-10-14 13:37 | XMS_ITS | Encounter Summary ---
Author Organization [employer] Address 75 [facility] 7 [place] [address] Care Team Providers Care Heater Worker Name Role Phone Danny Morgan MD Primary Care Prov ider Reason for Visit * Reason Comments Med Refill Encounter Details Date Type Department Care Team ([facility] st Contact Info) Description 09/26/2023 Refill [facility] CH[facility] MED & PEDS [address] [place], [place] [phone] Milagro Mitchell MD 505 [place] [address] Social History Tobacco Use Types Packs/Day Years [...] documented as of this encounter Care Teams Heater Worker Relationship Specialty Start Date End Date Danny Morgan MD [address] [place] [address] PCP - General Internal Medicine 06/17/19 documented as of this encounter
[2024-10-14 16:08] LABS: PSA,Total (Free>4and<10) 16.63 ng/mL (0.00-4.00)
== END 2024-10-14 11:08 | disposition home or self-care (01) ==
LOC: HO.CHCLDS 11:07
PROVIDERS: Visit Provider Nurse Practitioner Family
DX: Z12.5 Encounter for screening for malignant neoplasm of prostate (principal); R97.20 Elevated prostate specific antigen [PSA]; N40.0 Benign prostatic hyperplasia without lower urinary tract symptoms
CPT/HCPCS: 36415; 84153

== ENCOUNTER → 2024-10-15 11:14 | Outpatient (BNV) | payer OTHER, SELFPAY | PROVIDERS: PCP Internal Medicine; Visit Provider Radiology Diagnostic Radiology | DX: N40.0 Benign prostatic hyperplasia without lower urinary tract symptoms (principal) | CPT/HCPCS: 72197 ==

== ENCOUNTER 2024-10-15 11:20 | Outpatient (REF) | payer OTHER, SELFPAY ==
--- NOTE | ~2024-10-15 | MR_ITS ---
EXAMINATION: MR PROSTATE WITHOUT THEN WITH IV CONTRAST HISTORY: N40.0 - Benign prostatic hyperplasia without lower urinary tract symptoms TECHNIQUE: 1.5T body coil survey of the pelvis was performed. Phase array coil imaging of the prostate was performed in multiplanar high resolution axial, coronal, sagittal fast spin echo T2 and axial T1 weighted imaging sequences. Axial diffusion imaging at intermediate and high field performed with ADC mapping. Next, 7.5 mL Gadavist was given by intravenous infusion, and dynamic axial imaging performed. 3-D reconstructions and post-processing were not performed, as no discrete lesion was identified. COMPARISON: There are no prior studies available for comparison. CLINICAL DATA: Most recent PSA: 16.63 ng/mL on 10/14/2024. PSA Density: 0.076 ng/mL squared Prostate Biopsy: Negative biopsy on 11/16/2023. FINDINGS: Prostate size: 10.3 x 7.3 x 5.6 cm. Calculated prostate volume is 219 mL. Hemorrhage: The right posterior peripheral zone demonstrates increased T1 signal intensity which could represent hemorrhage. Transitional Zone: There is marked heterogeneous nodular hypertrophy of the transitional zone. Peripheral Zone: Scattered linear hypointense foci are noted in the peripheral zone on T2-weighted images which can be seen in the setting of prostatitis of scarring. No discrete focus of abnormal signal intensity is identified. There are no foci of restricted diffusion. Seminal Vesicles/Ejaculatory Ducts: Symmetric and normal in signal and caliber. Pelvic Lymph Nodes: No obturator or internal iliac lymph nodes meeting size criteria for adenopathy. Marrow Signal: Normal marrow signal and enhancement without focal lesion identified. MR/MR Prostate wo/w con IMPRESSION: No discrete focus of abnormal signal intensity is identified to suggest clinically significant prostate carcinoma. PI-RADS 2: Low (clinically significant cancer is unlikely to be present) PI-RADS Assessment Categories PI-RADS 1: Very low (clinically significant cancer is highly unlikely to be present) PI-RADS 2: Low (clinically significant cancer is unlikely to be present) PI-RADS 3: Intermediate (the presence of clinically significant cancer is equivocal) PI-RADS 4: High (clinically significant cancer is likely to be present) PI-RADS 5: Very high (clinically significant cancer is highly likely to be present) [employer]. MR Prostate Imaging Reporting and Data System version 2.1. [email or web address]/Quality-[email or web address]/ Electronically signed by: Eliazar Farmer MD 10/15/2024 12:51 PM EDT RP
--- OUTSIDE RECORDS SUMMARY | 2024-10-15 13:46 | XMS_ITS | Encounter Summary ---
Author Organization [employer] Address 75 [facility] 7t [place] [address] Care Team Providers Care Hair And Makeup Designer Name Role Phone Danny Morgan MD Primary Care Prov ider Encounter Details Date Type Department Care Team ([facility] st Contact Info) Description 05/25/2023 Orders Only [facility] MEDICINE [address] [place] [address] ProviderEsther MD Social History Tobacco Use Types [...] PM EDT Narrative 07/04/2023 3:34 PM EDT [place] [address] Ultrasound Report Signed Patient: Brain Dumont MR#: [id number] 159 : 1955 Acct:[id number] Age/Sex: 68 / M ADM Date: 06/23/23 Loc: HO.US Attending Dr: Jayshree HOFFMANN Ordering Physician: Jayshree Porter Date of Service: 06/23/23 Procedure(s): US retroperitoneal comp Accession Number(s): [id number] cc: Danny Morgan MD; Jayshree Porter EXAMINATION: [...] in OV> 07/04/23 1530 DD/ 1416 TD/TT: Ceramic Tile Installer: TERRI Procedure Note Donotuseinterpreter, Image - 07/04/2023 [place] [address] Ultrasound Report Signed Patient: Brain Dumont PMR#: [id number] 159 : 6Acct:[id number] Age/Sex: 68 / MADM Date: 06/23/23 Loc: HO.US Attending Dr: Jayshree HOFFMANN Ordering Physician: Jayshree Porter Date of Service: 06/23/23 Procedure(s): US retroperitoneal comp Accession Number(s): [id number] cc: Danny Morgan MD; Jayshree Porter EXAMINATION: [...] in OV> 07/04/23 1530 DD/ 1416 TD/TT: Ceramic Tile Installer: TERRI [facility] External Provider IMG US PROCEDURES Final Result * Hm Colonoscopy (06/05/2014 8:11 AM EDT) Historical Provider HEALTH MAINTENANCE Final Result documented in this encounter Visit Diagnoses Not on filedocumented in this encounter Additional Health Concerns Assessment Noted Time PHQ-9 Depression Total Score: 4 09/09/19 23 10:31 AM EDT documented as of this encounter Care Teams Hair And Makeup Designer Relationship Specialty Start Date End Date Danny Morgan MD [address] [place] [address] PCP - General Internal Medicine 06/17/19 documented as of this encounter
--- OUTSIDE RECORDS SUMMARY | 2024-10-15 13:46 | XMS_ITS | Encounter Summary ---
Author Organization [employer] Address 75 [facility] 7t [place] [address] Care Team Providers Care Asset Manager Name Role Phone Danny Morgan MD Primary Care Prov ider Encounter Details Date Type Department Care Team (Late st Contact Info) Description 10/15/2024 Orders Only [facility] External Provider, [facility] Social History Tobacco Use Types Packs/Day Years [...] housing situation today? I have wilsonraymon kebede 07/02/[address] you [...] t he electric, gas, oil or water fitkit threatened to shut off services in your [...] Procedure Name Priority Date/Time Associated Diagnosis Comments MR PROSTATE W AND WO CONTRAST Routine 10/15/2024 11:39 AM EDT documented in this encounter Results * MR Prostate w and w/o Contrast (10/15/2024 11:39 AM EDT) Anatomical Region Laterality Modality Magnetic Resonan ce 10/15/2024 11:3 9 AM EDT Narrative 10/15/2024 12:54 PM EDT [place] [address] Magnetic Resonance Report Signed Patient: Brain Dumont MR#: [id number] 159 : 1955 Acct:[id number] Age/Sex: 69 / M ADM Date: 10/15/24 Loc: .MRI Attending Dr: Jayshree HOFFMANN Ordering Physician: Jayshree Porter Date of Service: 10/15/24 Procedure(s): MR Prostate wo/w con Accession Number(s): [id number] cc: Danny Morgan MD; Jayshree Porter Reason for Exam: N40.0 - Benign prostatic hyperplasia without lower urinary tract symptoms EXAMINATION: MR PROSTATE WITHOUT THEN WITH IV CONTRAST HISTORY: N40.0 - Benign prostatic hyperplasia without lower urinary tract symptoms TECHNIQUE: 1.5T body coil survey of the pelvis was performed. Phase array coil imaging of the prostate was performed in multiplanar high resolution axial, coronal, sagittal fast spin echo T2 and axial T1 weighted imaging sequences. Axial diffusion imaging at intermediate and high field performed with ADC mapping. Next, 7.5 mL Gadavist was given by intravenous infusion, and dynamic axial imaging performed. 3-D reconstructions and post-processing were not performed, as no discrete lesion was identified. COMPARISON: There are no prior studies available for comparison. CLINICAL DATA: Most recent PSA: 16.63 ng/mL on 10/14/2024. PSA Density: 0.076 ng/mL squared Prostate Biopsy: Negative biopsy on 11/16/2023. FINDINGS: Prostate size: 10.3 x 7.3 x 5.6 cm. Calculated prostate volume is 219 mL. Hemorrhage: The right posterior peripheral zone demonstrates increased T1 signal intensity which could represent hemorrhage. Transitional Zone: There is marked heterogeneous nodular hypertrophy of the transitional zone. Peripheral Zone: Scattered linear hypointense foci are noted in the peripheral zone on T2-weighted images which can be seen in the setting of prostatitis of scarring. No discrete focus of abnormal signal intensity is identified. There are no foci of restricted diffusion. Seminal Vesicles/Ejaculatory Ducts: Symmetric and normal in signal and caliber. Pelvic Lymph Nodes: No obturator or internal iliac lymph nodes meeting size criteria for adenopathy. Marrow Signal: Normal marrow signal and enhancement without focal lesion identified. MR/MR Prostate wo/w con IMPRESSION: No discrete focus of abnormal signal intensity is identified to suggest clinically significant prostate carcinoma. PI-RADS 2: Low (clinically significant cancer is unlikely to be present) PI-RADS Assessment Categories PI-RADS 1: Very low (clinically significant cancer is highly unlikely to be present) PI-RADS 2: Low (clinically significant cancer is unlikely to be present) PI-RADS 3: Intermediate (the presence of clinically significant cancer is equivocal) PI-RADS 4: High (clinically significant cancer is likely to be present) PI-RADS 5: Very high (clinically significant cancer is highly likely to be present) [employer]. MR Prostate Imaging Reporting and Data System version 2.1. http://www.acr.org/Quality-Safety/Resources/PIRADS/ Electronically signed by: Eliazar Farmer MD 10/15/2024 12:51 PM EDT Dictated By: Eliazar Farmer MD Signed By: <Electronically signed by Eliazar Farmer MD in OV> 10/15/24 1251 DD/ 1139 TD/TT: 10/15/24 1230 Account Advisor: Procedure Note Donotfosterinterpreter, Image - 10/15/2024 [place] [address] Magnetic Resonance Report Signed Patient: Brain Dumont PMR#: [id number] 159 : 6Acct:[id number] Age/Sex: 69 / MADM Date: 10/15/24 Loc: HO.MRI Attending Dr: Jayshree HOFFMANN Ordering Physician: Jayshree Porter Date of Service: 10/15/24 Procedure(s): MR Prostate wo/w con Accession Number(s): [id number] cc: Danny Morgan MD; Jayshree Porter Reason for Exam: N40.0 - Benign prostatic hyperplasia without lowerurinary tract symptoms EXAMINATION: MR PROSTATE WITHOUT THEN WITH IV CONTRAST HISTORY: N40.0 - Benign prostatic hyperplasia without lower urinary tract symptoms TECHNIQUE: 1.5T body coil survey of the pelvis was performed. Phase array coil imaging of the prostate was performed in multiplanar high resolution axial, coronal, sagittal fast spin echo T2 and axial T1 weighted imaging sequences. Axial diffusion imaging at intermediate and high field performed with ADC mapping. Next, 7.5 mL Gadavist was given by intravenous infusion, and dynamic axial imaging performed. 3-D reconstructions and post-processing were not performed, as no discrete lesion was identified. COMPARISON: There are no prior studies available for comparison. CLINICAL DATA: Most recent PSA: 16.63 ng/mL on 10/14/2024. PSA Density: 0.076 ng/mL squared Prostate Biopsy: Negative biopsy on 11/16/2023. FINDINGS: Prostate size: 10.3 x 7.3 x 5.6 cm. Calculated prostate volume is 219 mL. Hemorrhage: The right posterior peripheral zone demonstrates increased T1 signal intensity which could represent hemorrhage. Transitional Zone: There is marked heterogeneous nodular hypertrophy of the transitional zone. Peripheral Zone: Scattered linear hypointense foci are noted in the peripheral zone on T2-weighted images which can be seen in the setting of prostatitis of scarring. No discrete focus of abnormal signal intensity is identified. There are no foci of restricted diffusion. Seminal Vesicles/Ejaculatory Ducts: Symmetric and normal in signal and caliber. Pelvic Lymph Nodes: No obturator or internal iliac lymph nodes meeting size criteria for adenopathy. Marrow Signal: Normal marrow signal and enhancement without focal lesion identified. MR/MR Prostate wo/w con IMPRESSION: No discrete focus of abnormal signal intensity is identified to suggest clinically significant prostate carcinoma. PI-RADS 2: Low (clinically significant cancer is unlikely to be present) PI-RADS Assessment Categories PI-RADS 1: Very low (clinically significant cancer is highly unlikely to be present) PI-RADS 2: Low (clinically significant cancer is unlikely to be present) PI-RADS 3: Intermediate (the presence of clinically significant cancer is equivocal) PI-RADS 4: High (clinically significant cancer is likely to be present) PI-RADS 5: Very high (clinically significant cancer is highly likely to be present) [employer]. MR Prostate Imaging Reporting and Data System version 2.1. http://www.acr.org/Quality-Safety/Resources/PIRADS/ Electronically signed by: Eliazar Farmer MD 10/15/2024 12:51 PM EDT Dictated By: Eliazar Farmer MD Signed By: <Electronically signed by Eliazar Farmer MD in OV> 10/15/24 1251 DD/ 1139 TD/TT: 10/15/24 1230 Account Advisor: [facility] External Provider IMG MRI PROCEDURES Final Result documented in this encounter Visit Diagnoses Not on filedocumented in this encounter Additional Health Concerns Assessment Noted Time PHQ-9 Depression Total Score: 2 07/03/19 25 1:21 PM EDT documented as of this encounter Care Teams Asset Manager Relationship Specialty Start Date End Date Danny Morgan MD [address] [place] [phone] PCP - General Internal Medicine 06/17/19 documented as of this encounter
--- OUTSIDE RECORDS SUMMARY | 2024-10-15 13:46 | XMS_ITS | Clinical Summary ---
Author Organization [employer] Address [address] [place] [address] 7t [place] [address] Care Team Providers Care Deaf/Hard Of Hearing Specialist Name Role Phone Danny Morgan MD Primary [...] urology follow up, will send consult to [facility] as he prefers Mixed hyperlipidemia 02/23/2022 [...] Encounters Date Type Department Care Team Description 10/15/2024 Orders Only [facility] External Provider, [facility] 10/12/2024 Refill [facility] MED & PEDS [address] [place] [address] Danny Morgan MD 09/28/2024 Refill [facility] [address] [place] [address] Danny Morgan MD Postural dizziness 08/25/2024 Refill [facility] [address] [place] [address] Danny Morgan MD 07/15/2024 Results Follow-Up [facility] [address] [place] [address] Danny Morgan MD CBC auto differential, Comprehensive [...] Screening 07/02/2025 07/02/2024 Lipid Panel 07/12/2029 07/12/2024, 08/06, 02/25/2022, Additional history exists RSV Patients and [...] WO CONTRAST Routine 10/15/2024 11:39 AM EDT LIPID PANEL, STANDARD Routine 07/12/2024 12:00 AM EDT Primary hypertension HEPATITIS C AB W/REFL TO HCV RNA, QN, PCR Routine 02/25/2022 9:56 AM EST Primary hypertension Mixed hyperlipidemia COLONOSCOPY Routine 06/05/2014 8:11 AM EDT from Last 3 Months or Most Recently Relevant to Health Maintenance Results * MR Prostate w and w/o Contrast (10/15/2024 11:39 AM EDT) Anatomical Region Laterality Modality Magnetic Resonan ce 10/15/2024 11:3 9 AM EDT Narrative 10/15/2024 12:54 PM EDT [address] [address] Magnetic Resonance Report Signed Patient: Brain Dumont MR#: [id number] 159 : 1955 Acct:[id number] Age/Sex: 69 / M ADM Date: 10/15/24 Loc: HO.MRI [facility] Ordering Physician: Jayshree Porter Date of Service: 10/15/24 Procedure(s): MR Prostate wo/w con Accession Number(s): [id number] cc: Danny Morgan MD; Jayshree Porter Reason [...] cancer is highly likely to be present) [employer]. MR Prostate Imaging Reporting and Data System version 2.1. http://www.acr.org/Quality-Safety/Resources/PIRADS/ Electronically signed by: Eliazar Farmer MD 10/15/2024 12:51 PM EDT RP Dictated By: Eliazar Farmer MD Signed By: <Electronically signed by Eliazar Farmer MD in OV> 10/15/24 1251 DD/ 1139 TD/TT: 10/15/24 1230 Wine Cellar Stock Clerk: Procedure Note Donotuseinterpreter, Image - 10/15/[address] [address] Magnetic Resonance Report Signed Patient: Brain Dumont PMR#: [id number] 159 : 6Acct:[id number] Age/Sex: 69 / MADM Date: 10/15/24 Loc: HO.MRI Attending Dr: Jayshree NYE- Ordering Physician: Jayshree PorterBC Date of Service: 10/15/24 Procedure(s): MR Prostate wo/w con Accession Number(s): [id number] cc: Danny Morgan MD; Jayshree Porter [facility] Reason for Exam: N40.0 - Benign prostatic [...] cancer is highly likely to be present) [employer]. MR Prostate Imaging Reporting and Data System version 2.1. http://www.acr.org/Quality-Safety/Resources/PIRADS/ Electronically signed by: Eliazar Farmer MD 10/15/2024 12:51 PM EDT RP Dictated By: Eliazar Farmer MD Signed By: <Electronically signed by Eliazar Farmer MD in OV> 10/15/24 1251 DD/ 1139 TD/TT: 10/15/24 1230 Wine Cellar Stock Clerk: [facility] External Provider IMG MRI PROCEDURES Final Result * (ABNORMAL) Lipid Panel, Standard (07/12/2024 12:00 AM EDT) Triglycerides 124 <150 mg/dL [facility] Comment:Desirable Triglyceri de: less than 150 mg/dLBorderline High Triglyceride 150-199 mg/dLHigh Triglyceride: 200-499 mg/dLVery High Triglyceride: greater than or equal to 5OO mg/dL Cholesterol 190 <200 mg/dL [facility] Comment:Desirable Cholestero l: less than 200 mg/dLBorderline High Cholesterol: 200-239 mg/dLHigh Cholesterol: greater than 239 mg/dL LDL Cholesterol Calculated 119(H) <100 mg/dL [facility] Comment:Desirable LDL: less than 100 mg/dLNear Optimal/Above Optimal LDL: 110- 129 mg/dLBorderline High LDL: 130-159 mg/dLHigh LDL: 160-189 mg/dLVery High LDL: greater than or equal to 190 mg/dL HDL Cholesterol 47 >40 mg/dL [facility] Comment:Desirable HDL: great er than 40 mg/dL Note: This HDL assay may give artificially low results in patients with liver disease. Blood Venous blood specimen / Unknown 07/12/2024 07/12/2024 Danny Jarrett MD LAB BLOOD ORDERABL ES Final Result [facility] [address] [place] [address] [phone] * Hepatitis C Antibody with Reflex to HCV, RNA, Quantitative, Real-Time PCR (02/25/2022 9:56 AM EST) Hepatitis C Antibody NON-REACT FALLON NON-REACT FALLON [place] [facility] Diagnost Index 0.11 <1.00 [place] [employer] Comment: HCV antibody was non-reactive. There is no laboratory evidence of HCV infection. In most cases, no further action is required. However, if recent HCV exposure is suspected, a test for HCV RNA (test code 78318) is suggested. For additional information please refer to http://Xola.OpenExchange/faq/UIL34c2 (This link is being provided for informational/ educational purposes only.) Blood Venous blood specimen / Unknown 02/25/2022 9:56 AM EST 02/25/2022 9:56 AM EST Narrative [facility] - 03/01/2022 8:54 PM EST FASTING:YES FASTING: YES Danny Jarrett MD LAB BLOOD ORDERABL ES Final Result Performing Organization Address [facility] Co de Phone Number [facility] [address], [place] [address] [place] [facility] [address] [facility], ([address]) [place] [address] * Hm Colonoscopy (06/05/2014 8:11 AM EDT) Esther Provider HEALTH MAINTENANCE Final Result from Last 3 Months or Most Recently Relevant to Health Maintenance Insurance [id number] INTERMEDIATE OPTIONS (HMO D-SNP) [place] [id number] Care Teams Deaf/Hard Of Hearing Specialist Relationship Specialty Start Date End Date Danny Morgan MD [address] [place] [phone] PCP - General Internal Medicine 06/17/19
--- OUTSIDE RECORDS SUMMARY | 2024-10-15 13:46 | XMS_ITS | Encounter Summary ---
Author Organization [employer] Address [address] [place] [address] Care Team Providers Care Grinder Watch Parts Name Role Phone Danny Morgan MD Primary Care Prov ider Reason for Visit * Reason Comments Med Refill Encounter Details Date Type Department Care Team ([facility] st Contact Info) Description 10/12/2024 Refill [facility] CH[facility] MED & PEDS [address] [place], [place] [phone] Danny Morgan MD [address] [place] [address] Social History Tobacco Use Types Packs/Day Years [...] documented as of this encounter Care Teams Grinder Watch Parts Relationship Specialty Start Date End Date Danny Morgan MD [address] [place] [address] PCP - General Internal Medicine 06/17/19 documented as of this encounter
--- OUTSIDE RECORDS SUMMARY | 2024-10-15 13:46 | XMS_ITS | Encounter Summary ---
Author Organization [employer] Address 75 [facility] 7 [place] [address] Care Team Providers Care Senior Training And Development Rep Name Role Phone Danny Morgan MD Primary Care Prov ider Reason for Visit * Reason Comments Med Refill Encounter Details Date Type Department Care Team ([facility] st Contact Info) Description 01/17/2024 Refill [facility] MED & PEDS [address] [place], [place] [phone] Danny Morgan MD [address] [place] [address] Social History Tobacco Use Types Packs/Day Years [...] documented as of this encounter Care Teams Senior Training And Development Rep Relationship Specialty Start Date End Date Danny Morgan MD [address] [place] [address] PCP - General Internal Medicine 06/17/19 documented as of this encounter
--- OUTSIDE RECORDS SUMMARY | 2024-10-15 13:46 | XMS_ITS | Encounter Summary ---
Author Organization [employer] Address 75 [facility] 7 [place] [address] Care Team Providers Care Supervising Editor News Reel Name Role Phone aDnny Morgan MD Primary Care Prov ider Reason for Visit * Reason Onset Date Comments Durable Medical Equipment 01/26/2024 Encounter Details Date Type Department Care Team ([facility] st Contact Info) Description 01/26/[address] [facility] MEDICINE [address] [place] [address] Danny Morgan MD [address] [place] [address] Durable Medical Equipment Social History Tobacco Use [...] Pt was told to get them by [facility]. IF any questions contact pt at [phone] * Telephone Encounter - Jaison Shelton - 01/26/2024 11:02 AM EST Tc from pt requesting to get a script for Compression Socks. Pt was told to get them by [facility]. IF any questions contact pt at [phone] documented in this encounter Plan of Treatment Not on file documented as of this encounter Visit Diagnoses Not on filedocumented in this encounter Additional Health Concerns Assessment Noted Time PHQ-9 Depression Total Score: 4 09/09/19 23 10:31 AM EDT documented as of this encounter Care Teams Supervising Editor News Reel Relationship Specialty Start Date End Date Danny Morgan MD [address] [place] [address] PCP - General Internal Medicine 06/17/19 documented as of this encounter
--- OUTSIDE RECORDS SUMMARY | 2024-10-15 13:46 | XMS_ITS | Encounter Summary ---
Author Organization [employer] Address [address] [facility] [address] [facility] [address] [place] [address] Care Team Providers Care Supervisor Electronics Processing Name Role Phone Danny Morgan MD Primary Care Prov ider Reason for Visit * Reason Onset Date Comments Nurse Triage 05/10/2023 Encounter Details Date Type Department Care Team ([facility] st Contact Info) Description 05/10/[address] [facility] MEDICINE [address] [place] [address] Danny Morgan MD [address] [place] [address] Nurse Triage Social History Tobacco Use Types [...] 05/10/2023 12:11 PM EDT Triage call with [employer]edar Fres[employer] Artist attempted x2. Voice message left to call [facility] triage line at [phone] * Telephone Encounter - Naomi Dyer - 05/10/2023 11:48 AM EDT Symptom: Foot or Ankle Swelling Outcome: Schedule a same-day appointment or talk to a nurse or provider today Reason: Caller denied all higher acuity questions The caller accepted this outcome Turkmen speaker documented in this encounter Plan of Treatment Not on file documented as of this encounter Visit Diagnoses Not on filedocumented in this encounter Additional Health Concerns Assessment Noted Time PHQ-9 Depression Total Score: 4 09/09/19 23 10:31 AM EDT documented as of this encounter Care Teams Supervisor Electronics Processing Relationship Specialty Start Date End Date Danny Morgan MD [address] [place] [phone] PCP - General Internal Medicine 06/17/19 documented as of this encounter
--- OUTSIDE RECORDS SUMMARY | 2024-10-15 13:46 | XMS_ITS | Encounter Summary ---
Author Organization [employer] Address [address] [facility] [address] [place] [address] Care Team Providers Care Field Appraiser Name Role Phone Danny Morgan MD Primary Care Prov ider Reason for Visit * Reason Comments Med Refill Encounter Details Date Type Department Care Team ([facility] st Contact Info) Description 09/26/2023 Refill [facility]EDS [address] [place], [place] [phone] Milagro Mitchell MD [address] [place] [address] Social History Tobacco Use Types Packs/Day Years [...] documented as of this encounter Care Teams Field Appraiser Relationship Specialty Start Date End Date Danny Morgan MD [address] [place] [id number] PCP - General Internal Medicine 06/17/19 documented as of this encounter
== END 2024-10-15 11:21 | disposition home or self-care (01) ==
LOC: HO.MRI 11:20
PROVIDERS: PCP Internal Medicine; Visit Provider Nurse Practitioner Family
DX: N40.0 Benign prostatic hyperplasia without lower urinary tract symptoms (principal); R97.20 Elevated prostate specific antigen [PSA]
CPT/HCPCS: 72197; 76377; A9585

== ENCOUNTER 2024-11-19 09:56 | Outpatient (AMB) | payer OTHER, SELFPAY ==
--- NOTE | 2024-11-19 10:10 | MHC.OFFVIS ---
Intake Visit Reasons: 4m/PSA/MRI Intake Note: Patient is present for 4M/PSA/MRI Urology Medication:FINASTERIDE,TAMSULOSIN Antibiotic Allergy:NONE Blood Thinner:ASPIRIN Manager Diabetes Required: No Manager Diabetes Services: Manager Diabetes Present Manager Diabetes Name: Pito Goetz325 Allergies No Known Allergies Allergy (Verified 11/19/24 10:44) Medication List - Last Reconciled 11/19/24 by LOLA RileyP- amlodipine 10 mg PO DAILY aspirin 81 mg PO DAILY atorvastatin 20 mg PO BEDTIME finasteride 5 mg PO DAILY 90 days lisinopril 20 mg PO DAILY meclizine mg PO DAILY metoprolol tartrate 25 mg PO BID tamsulosin 0.4 mg PO BEDTIME 30 days HPI Comments Details: Brain is a pleasant 69-year-old Pashto-speaking male patient of Dr. Payan. He has a past medical history of hypertension and postural dizziness. He presents to the office today for follow-up of his elevated PSA. In discussion with the patient today he reports to be doing and feeling well. He reports since his last office visit here approximately 4 months ago he has stopped taking his urological medications as he feels he has had no bothersome urinary issues or concerns. He reports no bothersome urinary issues or concerns. Recent prostate MRI results reviewed with the patient today. 220 g prostate. No discrete focus of abnormal signal intensity to identify or suggest clinically significant prostate carcinoma. PI-RADS 2: Low. PSAs are as follows: PSA: 04/01 13.9, 09/29 14.5, 07/31 11.5, 10/31 16.6 We discussed increase in PSA. We also discussed increase in PSA with stopping finasteride. We did discussed further treatment options and risks and benefits of these treatment options to include restart of finasteride, surveillance monitoring, and or rebiopsy of prostate. Risks and benefits of these interventions were discussed at length. All questions were answered. When asked he denies urinary urgency, urinary frequency, incontinence, nocturia, hematuria, dysuria, foul smelling urine, changes to urinary stream, flank pain, fever, and or chills. He is happy with his current voiding parameters. Of note, patient underwent prostate biopsy 11/[address] Muller that noted chronic inflammation consistent with prior prostatitis. In office urinalysis results reviewed with the patient today. All questions were answered. He otherwise offers no other issues or concerns at this time. PREVIOUS OFFICE NOTE: Add finasteride given size of prostate Follow-up 6 months with PSA Would encourage prostate procedure if experiencing symptoms Elevated PSA with prostatitis PSA 09/29 14.5, 07/31 11.5 Prior prostate imaging 165 g At time of biopsy 230 g High postvoid bladder volume PFSH Medical History Elevated PSA Postural dizziness Hypertensive disorder Review of Systems Const All systems reviewed & are unremarkable except as noted in HPI and below Physical Exam Const General: cooperative, healthy appearing, comfortable, no acute distress, well developed, alert and awake Orientation/consciousness: patient oriented x3 Limitations: language barrier HEENT Head: Yes normal to inspection, Yes normocephalic and Yes atraumatic Ears: hearing grossly normal bilaterally Eyes General: appearance normal, both eyes and all related structures Neck Neck: Yes normal visual inspection and Yes trachea midline Chest Chest palpation & inspection: normal inspection of the chest Resp Effort & Inspection: normal respiratory effort and able to speak in complete sentences Cardio Rate: regular rate GI Inspection: Yes normal to inspection General: Yes no CVA tenderness Back/Spine/Pelvis Back: no CVA tenderness Skin General skin exam: no rashes or lesions noted Neuro General: patient oriented x3 Extrem General: Yes normal to inspection Psych Appearance: grossly normal and well kempt Mental Status: mental status grossly normal Speech and movement: Normal speech and movement present and Clear speech present Affect: normal affect Attitude: cooperative Thought process: Normal thought process present Thought content: Normal thought content present Insight: Fair insight present (Psych) Judgement: Fair judgement present (Psych) Results AMB Urinalysis, Automated UA Leukoctes 0 Melyssa/uL Last Edit by BEATRICE Edgar on 11/19/24 10:52 UA Nitrite Negative Last Edit by BEATRICE Edgar on 11/19/24 10:52 UA Urobilinogen 0.2 mg/dL Last Edit by BEATRICE Edgar on 11/19/24 10:52 UA Protein 15 mg/dL Last Edit by BEATRICE Edgar on 11/19/24 10:52 UA pH 6.0 Last Edit by BEATRICE Edgar on 11/19/24 10:52 UA Blood 0 Almas/uL Last Edit by BEATRICE Edgar on 11/19/24 10:52 UA Specific [place] 1.020 Last Edit by BEATRICE Edgar on 11/19/24 10:52 UA Ketone Negative Last Edit by BEATRICE Edgar on 11/19/24 10:52 UA Bilirubin 0 mg/dL Last Edit by BEATRICE Edgar on 11/19/24 10:52 UA Glucose 0 mg/dL Last Edit by BEATRICE Edgar on 11/19/24 10:52 Results Reviewed Results Reviewed: Date of Service: 10/15/24 Procedure(s): MR Prostate wo/w con FINDINGS: Prostate size: 10.3 x 7.3 x 5.6 cm. Calculated prostate volume is 219 mL. Hemorrhage: The right posterior peripheral zone demonstrates increased T1 signal intensity which could represent hemorrhage. Transitional Zone: There is marked heterogeneous nodular hypertrophy of the transitional zone. Peripheral Zone: Scattered linear hypointense foci are noted in the peripheral zone on T2-weighted images which can be seen in the setting of prostatitis of scarring. No discrete focus of abnormal signal intensity is identified. There are no foci of restricted diffusion. Seminal Vesicles/Ejaculatory Ducts: Symmetric and normal in signal and caliber. Pelvic Lymph Nodes: No obturator or internal iliac lymph nodes meeting size criteria for adenopathy. Marrow Signal: Normal marrow signal and enhancement without focal lesion identified. IMPRESSION: No discrete focus of abnormal signal intensity is identified to suggest clinically significant prostate carcinoma. PI-RADS 2: Low (clinically significant cancer is unlikely to be present) PI-RADS Assessment Categories PI-RADS 1: Very low (clinically significant cancer is highly unlikely to be present) PI-RADS 2: Low (clinically significant cancer is unlikely to be present) PI-RADS 3: Intermediate (the presence of clinically significant cancer is equivocal) PI-RADS 4: High (clinically significant cancer is likely to be present) PI-RADS 5: Very high (clinically significant cancer is highly likely to be present) Assessment & Plan Assessment & Plan (1) Prostatitis: Code(s): N41.9 - Inflammatory disease of prostate, unspecified Category: Medical (2) Elevated PSA: Code(s): R97.20 - Elevated prostate specific antigen [PSA] Category: Medical (3) Incomplete bladder emptying: Code(s): R33.9 - Retention of urine, unspecified Category: Medical (4) Bladder wall thickening: Code(s): N32.89 - Other specified disorders of bladder Category: Medical (5) Enlarged prostate: Code(s): N40.0 - Benign prostatic hyperplasia without lower urinary tract symptoms Category: Medical Plan In office urinalysis results reviewed with the patient today; as noted above. Recent PSA results reviewed with the patient today; as noted above. Recent prostate MRI results reviewed with the patient today; as noted above. We did discussed at length potential causes of elevated PSA as well as further treatment options and risks and benefits of these treatment options. Restart finasteride and Flomax as prescribed; refills provided All questions were answered. He currently denies any bothersome urinary issues or concerns. He reports be happy with current voiding parameters. Will obtain PSA in 4 months. DUNCAN eda offered however deferred. We did discussed importance of taking medications as prescribed Follow-up in 4 months with PSA and PVR; or sooner with any issues, concerns, and or questions. Orders: Orders PSA,Total (Free>4and<10) 4 Months N40.0 - Benign prostatic hyperplasia without lower urinary tract symptoms, N41.9 - Inflammatory disease of prostate, unspecified, R97.20 - Elevated prostate specific antigen [PSA] AMB Urinalysis Automated Today Z13.9 - Encounter for screening, unspecified Medications: Changed From tamsulosin 0.4 mg PO BEDTIME 30 days 30 caps 3RF N40.1 - Benign prostatic hyperplasia with lower urinary tract symptoms, R35.1 - Nocturia To tamsulosin 0.4 mg PO BEDTIME 90 caps 3RF 90 days N40.1 - Benign prostatic hyperplasia with lower urinary tract symptoms, R35.1 - Nocturia Refilled finasteride 5 mg PO DAILY 90 tabs 1RF 90 days N13.8 - Other obstructive and reflux uropathy, N40.1 - Benign prostatic hyperplasia with lower urinary tract symptoms, R33.9 - Retention of urine, unspecified, R97.20 - Elevated prostate specific antigen [PSA] Patient Instructions: The patient had an opportunity to ask questions regarding the treatment plan. All questions were answered. Physical exam, labs, and imaging were discussed and reviewed in detail. As well as risks, benefits, and discussion of treatment choices. No major barriers to understanding were identified. The patient expressed understanding and agreement with the above treatment plan. The patient was made aware they should contact our office by phone for worsening of their current condition, the appearance of new symptoms, or with any questions or concerns. Compliance is encouraged with any medications and follow up testing that is ordered. It is a privilege to be allowed the opportunity to participate in? your urological care.? Again, if you have any questions or concerns If you have any questions or concerns please do not hesitate to contact me. The office is [phone]. This note is constructed using voice recognition software. While every effort has been made to ensure accuracy president celebrity acquistion errors may have been included. Yours sincerely, TAHIRA Riley Coding Level of Care Code Est Pt Level 3 (21950) Complex EM visit Add On G2211 Diagnoses Prostatitis N41.9 Elevated PSA R97.20 Incomplete bladder emptying R33.9 Bladder wall thickening N32.89 Enlarged prostate N40.0
--- OUTSIDE RECORDS SUMMARY | 2024-11-19 11:22 | XMS_ITS | Encounter Summary ---
Author Organization [employer] Address [address] [facility] [address] [place] [address] Care Team Providers Care Painting Instructor Name Role Phone Danny Morgan MD Primary Care Prov ider Encounter Details Date Type Department Care Team ([facility] st Contact Info) Description 05/25/2023 Orders Only [facility] MEDICINE [address] [place] [address] ProviderEsther MD Social History Tobacco Use Types [...] PM EDT Narrative 07/04/2023 3:34 PM EDT [place] [address] Ultrasound Report Signed Patient: Brain Dumont MR#: [id number] : 1955 Acct:[id number] Age/Sex: 68 / M ADM Date: 06/23/23 Loc: HO.US Attending Dr: Jayshree HOFFMANN Ordering Physician: Jayshree Porter Date of Service: 06/23/23 Procedure(s): US retroperitoneal comp Accession Number(s): [id number] cc: Danny Morgan MD; Jayshree Porter EXAMINATION: [...] in OV> 07/04/23 1530 DD/ 1416 TD/TT: Web Methods Developer: TERRI Procedure Note Donotuseinterpreter, Image - 07/04/2023 [place] [address] Ultrasound Report Signed Patient: Brain Dumont PMR#: [id number] : 6Acct:[id number] Age/Sex: 68 / MADM Date: 06/23/23 Loc: HO.US Attending Dr: Jayshree HOFFMANN Ordering Physician: Jayshree Porter Date of Service: 06/23/23 Procedure(s): US retroperitoneal comp Accession Number(s): [id number] cc: Danny Morgan MD; Jayshree Porter EXAMINATION: [...] in OV> 07/04/23 1530 DD/ 1416 TD/TT: Web Methods Developer: TERRI [facility] External Provider IMG US PROCEDURES Final Result * Hm Colonoscopy (06/05/2014 8:11 AM EDT) Historical Provider HEALTH MAINTENANCE Final Result documented in this encounter Visit Diagnoses Not on filedocumented in this encounter Additional Health Concerns Assessment Noted Time PHQ-9 Depression Total Score: 4 09/09/19 23 10:31 AM EDT documented as of this encounter Care Teams Painting Instructor Relationship Specialty Start Date End Date Danny Morgan MD [address] [place] [id number] PCP - General Internal Medicine 06/17/19 documented as of this encounter
--- OUTSIDE RECORDS SUMMARY | 2024-11-19 11:22 | XMS_ITS | Clinical Summary ---
Author Organization [employer] Address [address] [place] [address] [address] [place] [address] Care Team Providers Care Gage Maker Name Role Phone Danny Morgan MD Primary Care Prov ider Allergies No known active allergies Medications Acetaminophen Extra Strength 500 MG tablet TAKE 2 TABLETS BY MOUTH EVERY 6 HOURS NEEDED FOR PAIN OR FEVER 03/24/19 22 Active Blood Pressure Monitoring (Omron 3 Series BP Monitor) device Check blood pressure on arm as directed ONCE OR twice daily 03/01/19 22 Active metoprolol tartrate (Lopressor) 25 MG tabletIndication [...] BROWER 90 tablet 1 10/15/19 25 Active lisinopril 20 MG tablet TAKE 1 TABLET BY MOUTH EVERY DAY 90 tablet 3 10/23/19 25 Active lisinopril 20 MG tablet TOME KATINA TABLETA VINS LOS BROWER 90 tablet 3 09/11/19 24 025 Discontinued Active Problems Problem Noted Date [...] urology follow up, will send consult to [facility] as he prefers Mixed hyperlipidemia 02/23/2022 [...] Encounters Date Type Department Care Team Description 10/22/2024 Telephone [facility] [address] [place] [address] Danny Morgan MD fyi 10/22/2024 Telephone [facility] [address] [place] [address] Danny Morgan MD Med Refill 10/22/2024 Refill [facility] [address] [place] [address] Danny Morgan MD 10/16/2024 Telephone [facility] [address] [place] [address] Danny Morgan MD RV APPT 10/15/2024 Orders Only [facility] External Provider, [facility] 10/12/2024 Refill [facility] [address] [place] [address] Danny Morgan MD 09/28/2024 Refill [facility] [address] [place] [address] Danny Morgan MD Postural dizziness 08/25/2024 Refill [facility] [address] [place] [address] Danny Morgan MD from Last 3 Months Immunizations Immunization Administration [...] 2024 06/15/2021, 05/10/2021 Influenza Vaccine (#1) 2024 , 02/02/2016, 03/14/2014 Alcohol/Substance Use Screening 07/02/2025 07/02/2024 [...] AM EDT Narrative 10/15/2024 12:54 PM EDT [place] [address] Magnetic Resonance Report Signed Patient: Brain Dumont MR#: [id number] : 1955 Acct:[id number] Age/Sex: 69 / M ADM Date: 10/15/24 Loc: HO.MRI Attending Dr: Jayshree [facility] Ordering Physician: Jayshree Porter Date of Service: 10/15/24 Procedure(s): MR Prostate wo/w con Accession Number(s): [id number] cc: Danny Morgan MD; Jayshree Porter Reason [...] cancer is highly likely to be present) [employer]. MR Prostate Imaging Reporting and Data System version 2.1. http://www.acr.org/Quality-Safety/Resources/PIRADS/ Electronically signed by: Eliazar Farmer MD 10/15/2024 12:51 PM EDT RP Dictated By: Eliazar Farmer MD Signed By: <Electronically signed by Eliazar Farmer MD in OV> 10/15/24 1251 DD/ 1139 TD/TT: 10/15/24 1230 Tensile Tester: Procedure Note Donotuseinterpreter, Image - 10/15/[address] [address] Magnetic Resonance Report Signed Patient: Brain Dumont PMR#: [id number] : 6Acct:[id number] Age/Sex: 69 / MADM Date: 10/15/24 Loc: HO.MRI Attending Dr: Jayshree Porter [facility]- Ordering Physician: Jayshree PorterP-BC Date of Service: 10/15/24 Procedure(s): MR Prostate wo/w con Accession Number(s): [id number] cc: Danny Morgan MD; Jayshree Porter [facility] Reason for Exam: N40.0 - Benign prostatic [...] cancer is highly likely to be present) [employer] [employer]. MR Prostate Imaging Reporting and Data System version 2.1. http://www.acr.org/Quality-Safety/Resources/PIRADS/ Electronically signed by: Eliazar Farmer MD 10/15/2024 12:51 PM EDT RP Dictated By: Eliazar Farmer MD Signed By: <Electronically signed by Eliazar Farmer MD in OV> 10/15/24 1251 DD/ 1139 TD/TT: 10/15/24 1230 Tensile Tester: [facility] External Provider IMG MRI PROCEDURES Final Result * (ABNORMAL) Lipid Panel, Standard (07/12/2024 12:00 AM EDT) Triglycerides 124 <150 mg/dL [facility] Comment:Desirable Triglyceri de: less than 150 mg/dLBorderline High Triglyceride 150-199 mg/dLHigh Triglyceride: 200-499 mg/dLVery High Triglyceride: greater than or equal to 5OO mg/dL Cholesterol 190 <200 mg/dL [facility] Comment:Desirable Cholestero l: less than 200 mg/dLBorderline High Cholesterol: 200-239 mg/dLHigh Cholesterol: greater than 239 mg/dL LDL Cholesterol Calculated 119(H) <100 mg/dL [facility] Comment:Desirable LDL: less than 100 mg/dLNear Optimal/Above Optimal LDL: 110- 129 mg/dLBorderline High LDL: 130-159 mg/dLHigh LDL: 160-189 mg/dLVery High LDL: greater than or equal to 190 mg/dL HDL Cholesterol 47 >40 mg/dL [facility] Comment:Desirable HDL: great er than 40 mg/dL Note: This HDL assay may give artificially low results in patients with liver disease. Blood Venous blood specimen / Unknown 07/12/2024 07/12/2024 Danny Jarrett MD LAB BLOOD ORDERABL ES Final Result Performing Organization Address City/[facility]/ZIP Co de Phone Number [facility] [address] [place] [address] [phone] * Hepatitis C Antibody with Reflex to HCV, RNA, Quantitative, Real-Time PCR (02/25/2022 9:56 AM EST) Hepatitis C Antibody NON-REACT [place] NON-REACT FALLON [facility] [employer] ([employer])t Index 0.11 <1.00 [facility] [employer] Comment: HCV antibody was non-reactive. There is no laboratory evidence of HCV infection. In most cases, no further action is required. However, if recent HCV exposure is suspected, a test for HCV RNA (test code 46318) is suggested. For additional information please refer to http://[employer]/faq/DHW38d6 (This link is being provided for informational/ educational purposes only.) Blood Venous blood specimen / Unknown 02/25/2022 9:56 AM EST 02/25/2022 9:56 AM EST Narrative [facility] - 03/01/2022 8:54 PM EST FASTING:YES FASTING: YES Danny Jarrett MD LAB BLOOD ORDERABL ES Final Result Performing Organization Address [facility] Co de Phone Number [facility] [address], [place] [address] [facility] [employer] ([employer])t [address] [facility], ([address]) [place] [address] * Hm Colonoscopy (06/05/2014 8:11 AM EDT) Esther Provider HEALTH MAINTENANCE Final Result from Last 3 Months or Most Recently Relevant to Health Maintenance Insurance [id number] RESIDENTIAL OPTIONS (HMO D-SNP) [place] [id number] Care Teams Gage Maker Relationship Specialty Start Date End Date Danny Morgan MD [address] [place] [phone] PCP - General Internal Medicine 06/17/19
--- OUTSIDE RECORDS SUMMARY | 2024-11-19 11:22 | XMS_ITS | Encounter Summary ---
Author Organization [employer] Address [address] [facility] [address] [place] [address] Care Team Providers Care Call Worker Person Name Role Phone Danny Morgan MD Primary Care Prov ider Reason for Visit * Reason Onset Date Comments Durable Medical Equipment 01/26/2024 Encounter Details Date Type Department Care Team ([facility] st Contact Info) Description 01/26/2024 Telephone [facility] MED[facility]INE [address] [place] [address] Danny Morgan MD [address] [place] [address] Durable Medical Equipment Social History Tobacco Use [...] Pt was told to get them by [facility]. IF any questions contact pt at [phone] * Telephone Encounter - Jaison Shelton - 01/26/2024 11:02 AM EST Tc from pt requesting to get a script for Compression Socks. Pt was told to get them by [facility]. IF any questions contact pt at [phone] documented in this encounter Plan of Treatment Not on file documented as of this encounter Visit Diagnoses Not on filedocumented in this encounter Additional Health Concerns Assessment Noted Time PHQ-9 Depression Total Score: 4 09/09/19 23 10:31 AM EDT documented as of this encounter Care Teams Call Worker Person Relationship Specialty Start Date End Date Danny Morgan MD [address] [place] [phone] PCP - General Internal Medicine 06/17/19 documented as of this encounter
--- OUTSIDE RECORDS SUMMARY | 2024-11-19 11:22 | XMS_ITS | Encounter Summary ---
Author Organization [employer] Address [address] [place] [address] Care Team Providers Care Master Automotive Glass Technician Name Role Phone Danny Morgan MD Primary Care Prov ider Reason for Visit * Reason Onset Date Comments Med Refill 10/22/2024 Encounter Details Date Type Department Care Team ([facility] st Contact Info) Description 10/22/2024 Telephone [facility]EDS [address] [place] [address] Danny Morgan MD [address] [place] [address] Med Refill Social History Tobacco Use Types Packs/Day Years [...] encounter Miscellaneous Notes * Telephone Encounter - Annalisa Erickson LPN - 10/22/2024 9:38 AM EDT Medication pended to PCP. * Telephone Encounter - Michelle Valiente - 10/22/2024 9:32 AM EDT TC from pt requesting medication refill. Medications needing refill : lisinopril 20 MG tablet To be sent to: [facility]/pharmacy #[id number] [place], [place] - [address] AT [place] documented in this encounter Plan of Treatment Not on file documented as of this encounter Visit Diagnoses Not on filedocumented in this encounter Additional Health Concerns Assessment Noted Time PHQ-9 Depression Total Score: 2 07/03/19 25 1:21 PM EDT documented as of this encounter Care Teams Master Automotive Glass Technician Relationship Specialty Start Date End Date Danny Morgan MD [address] [place] [phone] PCP - General Internal Medicine 06/17/19 documented as of this encounter
--- OUTSIDE RECORDS SUMMARY | 2024-11-19 11:22 | XMS_ITS | Encounter Summary ---
Author Organization [employer] Address 75 [facility] [address] [place] [address] Care Team Providers Care Clinical Project Manager Name Role Phone Danny Morgan MD Primary Care Prov ider Reason for Visit * Reason Comments Med Refill Encounter Details Date Type Department Care Team ([facility] st Contact Info) Description 01/17/2024 Refill [facility] PEDS [address] [place], [place] [phone] Danny Morgan MD [address] [place] [address] Social History Tobacco Use Types Packs/Day Years [...] documented as of this encounter Care Teams Clinical Project Manager Relationship Specialty Start Date End Date Danny Morgan MD [address] [place] [phone] PCP - General Internal Medicine 06/17/19 documented as of this encounter
--- OUTSIDE RECORDS SUMMARY | 2024-11-19 11:22 | XMS_ITS | Encounter Summary ---
Author Organization [employer] Address 75 [facility] [address] [place] [address] Care Team Providers Care Pipeline Operator Name Role Phone Danny Morgan MD Primary Care Prov ider Reason for Visit * Reason Onset Date Comments Nurse Triage 05/10/2023 Encounter Details Date Type Department Care Team ([facility] st Contact Info) Description 05/10/2023 Telephone [facility] MEDICINE [address] [place] [address] Danny Morgan MD [address] [place] [address] Nurse Triage Social History Tobacco Use Types [...] 05/10/2023 12:11 PM EDT Triage call with [place] [employer] Mechanic attempted x2. Voice message left to call [facility] triage line at [phone] * Telephone Encounter - Naomi Dyer - 05/10/2023 11:48 AM EDT Symptom: Foot or Ankle Swelling Outcome: Schedule a same-day appointment or talk to a nurse or provider today Reason: Caller denied all higher acuity questions The caller accepted this outcome [place] speaker documented in this encounter Plan of Treatment Not on file documented as of this encounter Visit Diagnoses Not on filedocumented in this encounter Additional Health Concerns Assessment Noted Time PHQ-9 Depression Total Score: 4 09/09/19 23 10:31 AM EDT documented as of this encounter Care Teams Pipeline Operator Relationship Specialty Start Date End Date Danny Morgan MD [address] [place] [phone] PCP - General Internal Medicine 06/17/19 documented as of this encounter
--- OUTSIDE RECORDS SUMMARY | 2024-11-19 11:22 | XMS_ITS | Encounter Summary ---
Author Organization [employer] Address 75 [facility] [address] [place] [address] Care Team Providers Care Electrical Intern Name Role Phone Danny Morgan MD Primary Care Prov ider Reason for Visit * Reason Comments Med Refill Encounter Details Date Type Department Care Team ([facility] st Contact Info) Description 09/26/2023 Refill [facility] MED & PEDS [address] [place], [place] [phone] Milagro Mitchell MD [address] [place] [address] Social History Tobacco Use Types Packs/Day Years [...] documented as of this encounter Care Teams Electrical Intern Relationship Specialty Start Date End Date Danny Morgan MD [address] [place] [phone] PCP - General Internal Medicine 06/17/19 documented as of this encounter
== END 2024-11-19 10:45 | disposition home or self-care (01) ==
LOC: HO.HUSH 09:56
PROVIDERS: PCP Internal Medicine; Visit Provider Nurse Practitioner Family
DX: N41.9 Inflammatory disease of prostate, unspecified (principal); R97.20 Elevated prostate specific antigen [PSA]; R33.9 Retention of urine, unspecified; N32.89 Other specified disorders of bladder; N40.0 Benign prostatic hyperplasia without lower urinary tract symptoms; Z13.9 Encounter for screening, unspecified
CPT/HCPCS: 99213; G2211

== ENCOUNTER → 2024-11-19 09:56 | Outpatient (BNVA) | payer OTHER, SELFPAY | PROVIDERS: PCP Internal Medicine; Visit Provider Nurse Practitioner Family | DX: N40.0 Benign prostatic hyperplasia without lower urinary tract symptoms (principal); N41.9 Inflammatory disease of prostate, unspecified; R97.20 Elevated prostate specific antigen [PSA]; R33.9 Retention of urine, unspecified; N32.89 Other specified disorders of bladder | CPT/HCPCS: 81003; 99212 ==